=== PATIENT | male | born 1945 | race Native Hawaiian/Other Pacific Islander ===

== ENCOUNTER 2017-05-23 10:32 | Emergency (ER) | payer MEDICARE ==
[2017-05-23 11:11] LABS: Appearance,Urine Clear (Clear); Bilirubin,Urine Negative (Negative); Glucose,Urine (UA) Negative (Negative); Ketones,Urine Negative (Negative); Leukocyte Esterase,Urine Negative (Negative); Nitrite,Urine Negative (Negative); Particle Count 381; Protein,Urine Negative (Negative); RBC,Urine 3 /hpf (0-5); Specific Gravity,Urine 1.008 (1.001-1.035); UA Billing (MACRO vs. MICRO) MICRO; Urobilinogen,Urine <2.0 mg/dL (<2.0); WBC,Urine 1 /hpf (0-5)
--- NOTE | 2017-05-23 11:18 | ED ---
General Adult HPI - General Chief complaint: Urogenital Stated complaint: Abd Pain Time Seen by Provider: 05/23/17 10:42 Source: EMS, RN notes reviewed Mode of arrival: EMS Limitations: no limitations - History of Present Illness Initial comments: Patient 71-year-old male who presents emergency room today with a chief complaint of urinary retention. He states that he was unable to void earlier today. Patient does admit to pressure lower abdomen. Patient denies any other complaints or symptoms. States she's never had similar symptoms. Denies any history of prostate problems. Patient denies any recent fever, chills, shortness of breath, chest pain, back pain, abdominal pain, nausea or vomiting, numbness or tingling, dysuria or hematuria, constipation or diarrhea, headaches or visual changes, or any other complaints. - Related Data Home Medications Medication Instructions Recorded Confirmed Latanoprost [Xalatan 0.005%] 1 drop BOTH EYES HS 05/23/17 05/23/17 Allergies Allergy/AdvReac Type Severity Reaction Status Date / Time No Known Allergies Allergy Verified 05/23/17 11:02 Review of Systems ROS Statement: Those systems with pertinent positive or pertinent negative responses have been documented in the HPI. ROS Other: All systems not noted in ROS Statement are negative. Past Medical History Additional Past Medical History / Comment(s): Sciatica, glaucoma History of Any Multi-Drug Resistant Organisms: None Reported Past Surgical History: No Surgical Hx Reported Past Psychological History: No Psychological Hx Reported Smoking Status: Former smoker Past Alcohol Use History: None Reported Past Drug Use History: None Reported General Exam - General Exam Comments Initial Comments: General: The patient is awake and alert, in no distress, and does not appear acutely ill. Eye: Pupils are equal, round and reactive to light, extra-ocular movements are intact. No nystagmus. There is normal conjunctiva bilaterally. No signs of icterus. Ears, nose, mouth and throat: There are moist mucous membranes and no oral lesions. Neck: The neck is supple, there is no tenderness or JVD. Cardiovascular: There is a regular rate and rhythm. No murmur, rub or gallop is appreciated. Respiratory: Lungs are clear to auscultation, respirations are non-labored, breath sounds are equal. No wheezes, stridor, rales, or rhonchi. Gastrointestinal: Soft, non-distended, non-tender abdomen without masses or organomegaly noted. There is no rebound or guarding present. No CVA tenderness. Bowel sounds are unremarkable. Musculoskeletal: Normal ROM, no tenderness. Strength 5/5. Sensation intact. Pulses equal bilaterally 2+. Neurological: A&O x 3. CN II-XII intact, There are no obvious motor or sensory deficits. Coordination appears grossly intact. Speech is normal. Skin: Skin is warm and dry and no rashes or lesions are noted. Psychiatric: Cooperative, appropriate mood & affect, normal judgment. Limitations: no limitations Course Vital Signs 05/23/17 10:35 Temperature 98.2 F Pulse Rate 95 Respiratory 20 Rate Blood Pressure 160/93 O2 Sat by Pulse 99 Oximetry Medical Decision Making - Medical Decision Making Reexamined at this time shows no signs of distress feeling much better after Jara catheter was placed. His abdomen soft nontender. He has no complaints at this time. Patient's urinalysis shows no sign of infection. Jara catheter will remain in place be advised follow-up with the urologist over the next 2 days. Advised return if any symptoms increase worsen. - Lab Data Lab Results 05/23/17 Range/Units 10:52 Urine Color Light Yellow Urine Appearance Clear (Clear) Urine pH 7.0 (5.0-8.0) Ur Specific [place] 1.008 (1.001-1.035) Urine Protein Negative (Negative) Urine Glucose (UA) Negative (Negative) Urine Ketones Negative (Negative) Urine Blood Small H (Negative) Urine Nitrite Negative (Negative) Urine Bilirubin Negative (Negative) Urine Urobilinogen <2.0 (<2.0) mg/dL Ur Leukocyte Esterase Negative (Negative) Urine RBC 3 (0-5) /hpf Urine WBC 1 (0-5) /hpf Disposition Clinical Impression: Urinary retention Disposition: HOME SELF-CARE Condition: Good Instructions: Urinary Retention in Men (ED) Additional Instructions: Please follow-up with the urologist over the next 2 days. Please return here to the emergency room for symptoms increase worsen or for any other concerns. Referrals: None,Stated [REFERRING] - 1-2 days Alex Yoon MD [STAFF PHYSICIAN] - 1-2 days Time of Disposition: 11:50
[2017-05-23 12:10] VITALS: BP 118/69; PULSE 77; RESP 16; TEMP 98
== END 2017-05-23 12:09 | disposition home or self-care (01) ==
LOC: EC 10:32
DX: R33.9 Retention of urine, unspecified (principal); R10.30 Lower abdominal pain, unspecified; Z87.891 Personal history of nicotine dependence; Z79.899 Other long term (current) drug therapy
CPT/HCPCS: 51702; 81001; 87086; 99284

== ENCOUNTER 2017-09-01 14:03 | Emergency (ER) | payer MEDICARE ==
[2017-09-01 09:48] LABS: Blood Urea Nitrogen 17 mg/dL (9-20)
--- NOTE | 2017-09-01 12:12 | CT ---
EXAMINATION TYPE: CT abdomen pelvis w con DATE OF EXAM: 09/01/2017 COMPARISON: 01/20/2015 HISTORY: 72-year-old male prostate cancer, Enlarged prostate per patient TECHNIQUE: Contiguous axial scanning of the abdomen and pelvis following administration of 100 ml Omn ipaque 300 IV contrast. Delayed images through the kidneys and coronal/sagittal reconstructions perf ormed. CT DLP: 378.9 mGycm Automated exposure control for dose reduction was used. FINDINGS: Heart is normal size without pericardial effusion. Aortic valvular calcifications are present. Lung b ases clear without pleural effusion. Small hiatal hernia. There is a small 1.4 cm cyst along the falciform ligament in the left liver lobe. No biliary ductal d ilatation. Portal venous system is patent. No abnormal gallbladder distention. However, there is suggestion of underlying noncalcified gallstone s measuring up to 2.2 cm which can be confirmed with gallbladder ultrasound. Adrenal glands, left kidney, spleen, and pancreas appear within normal limits. Redemonstrated are 2.9 cm cyst lateral upper pole right kidney. Additional couple subcentimeter hypod ensities within the right kidney are too small for accurate CT characterization but also probably rep resent cysts No dilated small bowel, free fluid, or free air. Normal appendix. Oral contrast has progressed to the rectum. No pericolonic inflammatory change seen. No mesenteric or retroperitoneal lymphadenopathy. Bladder urine distended. Large prostate gland measuring 6.9 cm wide with nodular heterogeneous enhanc ement throughout and posterior impression on the bladder base. There is a single surgical clip noted in the lower prostate. No abnormal fluid collection in the pelvis or pelvic lymphadenopathy seen. Bones: Degenerative changes at the SI joints and also in the lower lumbar spine. IMPRESSION: 1. LARGE PROSTATE GLAND MEASURING NEARLY 7 CM WITH NODULAR HETEROGENEOUS ENHANCEMENT THROUGHOUT. THER E IS A SINGLE SURGICAL CLIP LOCATED WITHIN. 2. NO SUSPICIOUS LYMPHADENOPATHY OR OSTEOBLASTIC LESION TO SUGGEST METASTATIC DISEASE. 3. SUSPECT UNDERLYING CHOLELITHIASIS. THIS CAN BE CONFIRMED WITH GALLBLADDER ULTRASOUND IF INDICATED.
--- NOTE | 2017-09-01 14:39 | ED ---
Male Urogenital HPI - General Chief complaint: Urogenital Source: patient Mode of arrival: ambulatory Limitations: no limitations - History of Present Illness Initial comments: -year-old male with past medical history of BPH presented for evaluation of urinary retention. He states that he was sent in for a nuclear medicine study and consumed the contrast however following study he has been unable to urinate. He states that this is happened in the past and was secondary to his BPH. A leg bag Cotton was placed and remained for 4 days until he followed up with his urologist Dr. Gresham at which point it was removed. He states that he has superpubic abdominal tenderness however denies any other symptoms. There is no lower extremity weakness, saddle anesthesia, or bowel incontinence. - Related Data Home Medications Medication Instructions Recorded Confirmed Latanoprost [Xalatan 0.005%] 1 drop BOTH EYES HS 05/23/17 05/23/17 Allergies Allergy/AdvReac Type Severity Reaction Status Date / Time No Known Allergies Allergy Verified 09/01/17 14:09 Review of Systems ROS Statement: Those systems with pertinent positive or pertinent negative responses have been documented in the HPI. ROS Other: All systems not noted in ROS Statement are negative. Constitutional: Denies: fever, chills Eyes: Denies: eye pain, eye discharge ENT: Denies: ear pain, throat pain Respiratory: Denies: cough, dyspnea Cardiovascular: Denies: chest pain, palpitations Endocrine: Denies: fatigue, heat or cold intolerance Gastrointestinal: Reports: abdominal pain. Denies: nausea, vomiting, diarrhea, constipation Genitourinary: Reports: other (urinary retention). Denies: dysuria, frequency Musculoskeletal: Denies: back pain, arthralgia Skin: Denies: rash, lesions Neurological: Denies: headache, weakness Psychiatric: Denies: anxiety, depression Hematological/Lymphatic: Denies: easy bleeding, easy bruising Past Medical History Additional Past Medical History / Comment(s): Sciatica, glaucoma enlarged prostate History of Any Multi-Drug Resistant Organisms: None Reported Past Surgical History: No Surgical Hx Reported Past Psychological History: No Psychological Hx Reported Smoking Status: Former smoker Past Alcohol Use History: None Reported Past Drug Use History: None Reported General Exam Limitations: no limitations General appearance: alert, in distress (mild) Head exam: Present: atraumatic, normocephalic, normal inspection Eye exam: Present: normal appearance, PERRL, EOMI ENT exam: Present: normal exam, normal oropharynx Neck exam: Present: normal inspection. Absent: tenderness Respiratory exam: Present: normal lung sounds bilaterally. Absent: respiratory distress Cardiovascular Exam: Present: regular rate, normal rhythm GI/Abdominal exam: Present: soft, tenderness. Absent: distended, guarding, rebound, rigid Rectal exam: Present: deferred Extremities exam: Present: normal inspection, full ROM Back exam: Present: normal inspection, full ROM Neurological exam: Present: alert, oriented X3. Absent: altered Psychiatric exam: Present: normal affect, normal mood Skin exam: Present: warm, dry, intact Course Vital Signs 09/01/17 14:07 Temperature 98.8 F Pulse Rate 89 Respiratory 18 Rate Blood Pressure 133/88 O2 Sat by Pulse 99 Oximetry Medical Decision Making - Medical Decision Making 72 yo male with pmh of BPH presenting for evaluation of urinary retention following a nuclear medicine scan. He is previously had obstruction similar to this requiring Cotton catheter placement for 4 days is then removed by his urologist Dr. Gresham. On physical examination he has tenderness and fullness of the bladder. Bladder scan performed and showed 860 mL of fluid in the bladder and on Cotton placement 1 L immediately into the back. Discussed with his urologist who agreed with plan to place Cotton bag/leg bag and discharge home with follow-up in the morning. Patient was informed of this discussion and given return instructions. He acknowledged an understanding of all information provided and agreed with this plan of care. - Lab Data Result diagrams: 09/01/17 09:23 Lab Results 09/01/17 Range/Units 09:23 BUN 17 (9-20) mg/dL Creatinine 0.88 (0.66-1.25) mg/dL Est GFR (MDRD) Af Amer >60 (>60 ml/min/1.73 sqM) Est GFR (MDRD) Non-Af >60 (>60 ml/min/1.73 sqM) Disposition Clinical Impression: Urinary retention Disposition: HOME SELF-CARE Condition: Stable Instructions: Urinary Retention in Men (ED) Additional Instructions: You have had a cotton catheter placed that can be strapped to your leg. This has been discussed with your urologist Dr. Gresham who was contacted and stated he could see you in his office tomorrow. Per our discussion, it is recommended you call him when you leave today to confirm your appointment for tomorrow. Furthermore, you should return to this ED if you are either unable to see him or develop new/worsening symptoms, including but not limited to: Abdominal pain , nausea and vomiting that won't stop, altered mental status, fevers or chills, shortness of breath or chest pain, lightheadedness or dizziness, inability to pass urine through the Cotton, or leakage of urine around the Cotton and out the penis. Referrals: Alex Okeefe MD [Primary Care Provider] - 1-2 days Lux Gresham MD [STAFF PHYSICIAN] - 1-2 days Time of Disposition: 14:45
[2017-09-01 15:14] VITALS: BP 124/78; PULSE 84; RESP 20; TEMP 97.8
--- NOTE | 2017-09-01 15:58 | NM ---
EXAMINATION TYPE: NM bone scan whole body DATE OF EXAM: 09/01/2017 COMPARISON: CT abdomen and pelvis earlier today. HISTORY: Prostate cancer Delayed whole-body scanning was performed following the injection of 22.2 mCi Tc 99m MDP. Images acq uired 3.5 hours post injection. Whole images are obtained in addition there are focal images of the t horax abdomen and pelvis acquired FINDINGS: There is focus of radiotracer uptake involving anterolateral left mid to lower rib roughly seventh ri b this correlates with a vague sclerotic area on axial image 1, correlate for healing fracture or rec ent trauma. Solitary metastatic lesion cannot be excluded though felt less likely given no additional areas of suspicious radiotracer uptake. Overlying contamination is seen after Jara catheterization. Imaging performed after Jara catheter inserted to empty bladder shows no suspicious pelvic uptake. IMPRESSION: As above
== END 2017-09-01 15:14 | disposition home or self-care (01) ==
LOC: EC 14:03
DX: R33.9 Retention of urine, unspecified (principal); Z87.891 Personal history of nicotine dependence; Z79.899 Other long term (current) drug therapy
CPT/HCPCS: 82565; 84520; 74177; 78306; 99284; 51702; A9503; Q9967; 36415

== ENCOUNTER 2017-09-19 09:33 | Emergency (ER) | payer MEDICARE ==
[2017-09-19 10:17] LABS: Appearance,Urine Clear (Clear); Bilirubin,Urine Negative (Negative); Blood,Urine Negative (Negative); Color,Urine Light Yellow; Glucose,Urine (UA) Negative (Negative); Ketones,Urine Negative (Negative); Leukocyte Esterase,Urine Negative (Negative); Nitrite,Urine Negative (Negative); Protein,Urine Negative (Negative); Specific Gravity,Urine 1.008 (1.001-1.035); Urobilinogen,Urine <2.0 mg/dL (<2.0)
--- NOTE | 2017-09-19 10:33 | ED ---
General Adult HPI - General Chief complaint: Urogenital Stated complaint: Male gu, can't urine Time Seen by Provider: 09/19/17 09:56 Source: patient, RN notes reviewed Mode of arrival: ambulatory Limitations: no limitations - History of Present Illness Initial comments: Patient 72-year-old male who presents emergency room today with a chief complaint of difficulty voiding. Patient states that he has a history of prostate cancer is currently being treated by urologist. States that he had some injections a few weeks ago. States that he's had some symptoms of dysuria this past week at times. States began to get worse this morning. States was able to sleep. Patient's been voiding small amount. Patient did have bladder scan here in the emergency room that showed greater than 800 mL. Nursing staff had placed a Jara catheter and patient is feeling much better at this time. Patient denies any recent fever, chills, shortness of breath, chest pain, back pain, numbness or tingling, constipation or diarrhea, headaches or visual changes, or any other complaints. - Related Data Home Medications Medication Instructions Recorded Confirmed Latanoprost [Xalatan 0.005%] 1 drop BOTH EYES HS 05/23/17 09/19/17 Tamsulosin [Flomax] 0.4 mg PO DAILY 09/01/17 09/19/17 Allergies Allergy/AdvReac Type Severity Reaction Status Date / Time No Known Allergies Allergy Verified 09/19/17 10:04 Review of Systems ROS Statement: Those systems with pertinent positive or pertinent negative responses have been documented in the HPI. ROS Other: All systems not noted in ROS Statement are negative. Past Medical History Past Medical History: Prostate Disorder Additional Past Medical History / Comment(s): Sciatica, glaucoma enlarged prostate History of Any Multi-Drug Resistant Organisms: None Reported Past Surgical History: No Surgical Hx Reported Past Psychological History: No Psychological Hx Reported Smoking Status: Former smoker Past Alcohol Use History: None Reported Past Drug Use History: None Reported General Exam - General Exam Comments Initial Comments: General: The patient is awake and alert, in no distress, and does not appear acutely ill. Eye: Pupils are equal, round and reactive to light, extra-ocular movements are intact. No nystagmus. There is normal conjunctiva bilaterally. Ears, nose, mouth and throat: There are moist mucous membranes and no oral lesions. Neck: The neck is supple. Cardiovascular: There is a regular rate and rhythm. No murmur, rub or gallop is appreciated. Respiratory: Lungs are clear to auscultation, respirations are non-labored, breath sounds are equal. No wheezes, stridor, rales, or rhonchi. Gastrointestinal: Soft, non-distended, non-tender abdomen without masses or organomegaly noted. There is no rebound or guarding present. No CVA tenderness. Musculoskeletal: Normal ROM, no tenderness. Strength 5/5. Sensation intact. Pulses equal bilaterally 2+. Neurological: A&O x 3. CN II-XII intact, There are no obvious motor or sensory deficits. Coordination appears grossly intact. Speech is normal. Skin: Skin is warm and dry and no rashes or lesions are noted. Psychiatric: Cooperative, appropriate mood & affect, normal judgment. Limitations: no limitations Course Vital Signs 09/19/17 09:44 Temperature 97.2 F L Pulse Rate 95 Respiratory 20 Rate Blood Pressure 134/65 O2 Sat by Pulse 100 Oximetry Medical Decision Making - Medical Decision Making Patient reexamined at this time shows no signs of distress. He doesn't that he is feeling better after Jara catheter was placed here in the emergency room. Patient urinalysis is negative for any sign of infection. His vitals are stable. Case discussed with attending physician Dr. Hassan. Patient will be discharged home with Jara catheter in place given a leg bag. Advised follow- up with his urologist tomorrow morning. Advised return if any symptoms increase worsen or for any other concerns. He states understanding and is in agreement. - Lab Data Lab Results 09/19/17 Range/Units 10:00 Urine Color Light Yellow Urine Appearance Clear (Clear) Urine pH 6.0 (5.0-8.0) Ur Specific [place] 1.008 (1.001-1.035) Urine Protein Negative (Negative) Urine Glucose (UA) Negative (Negative) Urine Ketones Negative (Negative) Urine Blood Negative (Negative) Urine Nitrite Negative (Negative) Urine Bilirubin Negative (Negative) Urine Urobilinogen <2.0 (<2.0) mg/dL Ur Leukocyte Esterase Negative (Negative) Disposition Clinical Impression: Urinary retention Disposition: HOME SELF-CARE Condition: Good Instructions: Urinary Retention in Men (ED) Additional Instructions: Please follow-up with your neurologist tomorrow. Please return here to the emergency room if any symptoms increase worsen or for any other concerns. Referrals: Alex Okeefe MD [Primary Care Provider] - 1-2 days Lux Gresham MD [STAFF PHYSICIAN] - 1-2 days Time of Disposition: 11:12
[2017-09-19 11:40] VITALS: BP 111/58; PULSE 57; RESP 16; TEMP 97.6
== END 2017-09-19 11:46 | disposition home or self-care (01) ==
LOC: EC 09:33
DX: R33.9 Retention of urine, unspecified (principal); R30.0 Dysuria; Z87.891 Personal history of nicotine dependence; Z85.46 Personal history of malignant neoplasm of prostate; Z79.899 Other long term (current) drug therapy
CPT/HCPCS: 51702; 51798; 81003; 87086; 99283

== ENCOUNTER 2018-02-23 09:00 | Emergency (ER) | payer MEDICARE ==
[2018-02-23 09:23] VITALS: BP 106/61; PULSE 78; RESP 18; TEMP 98.6
--- NOTE | 2018-02-23 09:59 | ED ---
Wound/Laceration HPI - General Source: patient, RN notes reviewed, old records reviewed Mode of arrival: ambulatory Limitations: no limitations <Lena Taylor - Last Filed: 02/23/18 10:52> <Merlin Soriano - Last Filed: 02/23/18 11:03> - General Chief Complaint: Wound/Laceration Stated Complaint: Hand laceration Time Seen by Provider: 02/23/18 09:49 - History of Present Illness Initial Comments: 72-year-old male presents today with a laceration over his right index finger. Patient reports that he was throwing a toilet into the trash can cause a laceration over the fourth digit. He reports over the medial aspect of the phalanx. He reports he does have range of motion. He states his tetanus is up- to-date. Denies any other symptoms. (Lena Taylor) - Related Data Home Medications Medication Instructions Recorded Confirmed Latanoprost [Xalatan 0.005%] 1 drop BOTH EYES HS 05/23/17 09/19/17 Tamsulosin [Flomax] 0.4 mg PO DAILY 09/01/17 09/19/17 Allergies Allergy/AdvReac Type Severity Reaction Status Date / Time No Known Allergies Allergy Verified 02/23/18 09:23 Review of Systems ROS Other: All systems not noted in ROS Statement are negative. <Lena Taylor - Last Filed: 02/23/18 10:52> ROS Other: All systems not noted in ROS Statement are negative. <Merlin Soriano - Last Filed: 02/23/18 11:03> ROS Statement: Those systems with pertinent positive or pertinent negative responses have been documented in the HPI. Past Medical History Past Medical History: Cancer, Prostate Disorder Additional Past Medical History / Comment(s): Sciatica, glaucoma enlarged prostate, prostate cancer History of Any Multi-Drug Resistant Organisms: None Reported Past Surgical History: No Surgical Hx Reported Past Psychological History: No Psychological Hx Reported Smoking Status: Former smoker Past Alcohol Use History: None Reported Past Drug Use History: None Reported <Lena Taylor - Last Filed: 02/23/18 10:52> General Exam Limitations: no limitations General appearance: alert, in no apparent distress Head exam: Present: atraumatic, normocephalic, normal inspection Eye exam: Present: normal appearance, PERRL, EOMI. Absent: scleral icterus, conjunctival injection, periorbital swelling ENT exam: Present: normal exam, mucous membranes moist Neck exam: Present: normal inspection. Absent: tenderness, meningismus, lymphadenopathy Respiratory exam: Present: normal lung sounds bilaterally. Absent: respiratory distress, wheezes, rales, rhonchi, stridor Cardiovascular Exam: Present: regular rate, normal rhythm, normal heart sounds. Absent: systolic murmur, diastolic murmur, rubs, gallop, clicks GI/Abdominal exam: Present: soft, normal bowel sounds. Absent: distended, tenderness, guarding, rebound, rigid Extremities exam: Present: normal inspection, full ROM, normal capillary refill , other ( is a 2 cm laceration over his right index finger.). Absent: tenderness, pedal edema, joint swelling, calf tenderness Back exam: Present: normal inspection Neurological exam: Present: alert, oriented X3, CN II-XII intact Psychiatric exam: Present: normal affect, normal mood Skin exam: Present: warm, dry, intact, normal color. Absent: rash <Lena Taylor - Last Filed: 02/23/18 10:52> <Merlin Soriano - Last Filed: 02/23/18 11:03> - General Exam Comments Initial Comments: 72-year-old (Lena Taylor) Course <Lena Taylor - Last Filed: 02/23/18 10:52> <Merlin Soriano - Last Filed: 02/23/18 11:03> Vital Signs 02/23/18 09:21 Temperature 98.6 F Pulse Rate 78 Respiratory 18 Rate Blood Pressure 106/61 O2 Sat by Pulse 98 Oximetry - Reevaluation(s) Reevaluation #1: 02/23/18 11:03 PA supervision: I reviewed and agree with the PA findings including all diagnostic interpretations and treatment plans. (Merlin Soriano) Procedures - Laceration Laceration #1 Site: hand (index finger) Size (cm): 2 Description: linear Anesthetic Used: lidocaine 1% Anesthesia Technique: local infiltration Amount (mls): 2 Pre-repair: wound explored, irrigated extensively Type of Sutures: vicryl Size of Sutures: 5-0 Number of Sutures: 3 Technique: simple, interrupted Patient Tolerated Procedure: well, no complications <Lena Taylor - Last Filed: 02/23/18 10:52> Medical Decision Making <Lena Taylor - Last Filed: 02/23/18 10:52> <Merlin Soriano - Last Filed: 02/23/18 11:03> - Medical Decision Making 72-year-old male with a laceration over his right next finger after he was attempting to throw totaling cut on the dorsal aspect. His tetanus is up-to- date. Patient x-rays reviewed and negative for any fractures or dislocation of the right hand. Patient's wound was irrigated and cleaned. Closed with 3 sutures. Discussed close follow-up with PCP. All questions answered return parameters were discussed. (Maria Elena Taylorily) Disposition Is patient prescribed a controlled substance at d/c from ED?: No Time of Disposition: 10:29 <ClaudiaLena - Last Filed: 02/23/18 10:52> <Merlin Soriano - Last Filed: 02/23/18 11:03> Clinical Impression: Finger laceration Disposition: HOME SELF-CARE Condition: Good Instructions: Care For Your Stitches (ED) Additional Instructions: Please return to the emergency room in 8-10 days to have sutures removed. Please leave wound covered for the first 24-48 hours and then leave open to air after that time. Please use clean soap and water to clean the suture area to prevent scabbing over the top of your sutures. Please watch for any signs of infection which may include but not limited to increased pain, swelling, redness , fever or chills. Please return to the emergency room if any signs of infection do occur. Please return to the emergency room for any other concerns or complications. Referrals: Sharif Okeefe MD [Primary Care Provider] - 1-2 days
--- NOTE | 2018-02-23 10:15 | XR ---
EXAMINATION TYPE: XR hand complete RT DATE OF EXAM: 02/23/2018 CLINICAL HISTORY: Cut injury with pain. TECHNIQUE: Frontal, lateral and oblique images of the right hand are obtained. COMPARISON: None. FINDINGS: There is no acute fracture/dislocation evident in the right hand. Demineralization is pres ent. Mild joint space loss throughout the phalanges is seen. Mild diffuse soft tissue swelling at PIP joints is noted. No suspicious radiodense foreign bodies appreciated. Radiocarpal joint space loss i s present. IMPRESSION: There is no acute fracture or dislocation in the right hand.
[2018-02-23] MEDS ORDERED: LIDOCAINE 1% INJ 10MG/ML (20 ML MDV) SQ STA (10:18)
== END 2018-02-23 10:53 | disposition home or self-care (01) ==
LOC: EC 09:00
DX: S61.210A Laceration without foreign body of right index finger without damage to nail, initial encounter (principal); N40.0 Benign prostatic hyperplasia without lower urinary tract symptoms; Z85.46 Personal history of malignant neoplasm of prostate; Z87.891 Personal history of nicotine dependence; Z79.899 Other long term (current) drug therapy; W26.8XXA Contact with other sharp object(s), not elsewhere classified, initial encounter
CPT/HCPCS: 12001; 99283

== ENCOUNTER 2019-06-06 12:15 | Emergency (ER) | payer MEDICARE ==
[2019-06-06 12:21] VITALS: TEMP 98.1
--- NOTE | 2019-06-06 12:35 | ED ---
General Adult HPI - General Chief complaint: Abdominal Pain Stated complaint: upper abdominal & back pain Time Seen by Provider: 06/06/19 12:24 Source: patient, RN notes reviewed, old records reviewed Mode of arrival: ambulatory Limitations: no limitations - History of Present Illness Initial comments: 73-year-old male presents for evaluation of an episode of crampy epigastric pain and nausea. This was approximately 15-20 minutes after eating this morning. He has had intermittent episodes of similar symptoms in the past. He was at work at the time and the symptoms were relieved with ambulation and time. He had no vomiting. His had normal bowel movements this morning. No melena or bloody stool. He states his had similar symptoms in the past 15-20 minutes after eating. He is otherwise healthy, no hypertension or diabetes. He has known h istory of prostate cancer and is following with an outside facility. He denies dyspnea. Denies chest pain. - Related Data Home Medications Medication Instructions Recorded Confirmed Latanoprost [Xalatan 0.005%] 1 drop BOTH EYES HS 05/23/17 09/19/17 Tamsulosin [Flomax] 0.4 mg PO DAILY 09/01/17 09/19/17 Previous Rx's Medication Instructions Recorded Omeprazole [PriLOSEC] 20 mg PO AC-BID #60 cap 06/06/19 Allergies Allergy/AdvReac Type Severity Reaction Status Date / Time No Known Allergies Allergy Verified 06/06/19 12:21 Review of Systems ROS Statement: Those systems with pertinent positive or pertinent negative responses have been documented in the HPI. ROS Other: All systems not noted in ROS Statement are negative. Past Medical History Past Medical History: Cancer, Prostate Disorder Additional Past Medical History / Comment(s): Sciatica, glaucoma enlarged prostate, prostate cancer History of Any Multi-Drug Resistant Organisms: None Reported Past Surgical History: No Surgical Hx Reported Past Psychological History: No Psychological Hx Reported Smoking Status: Former smoker Past Alcohol Use History: None Reported Past Drug Use History: None Reported General Exam Limitations: no limitations General appearance: alert, in no apparent distress Head exam: Present: atraumatic, normocephalic Eye exam: Present: normal appearance, PERRL ENT exam: Present: normal exam Neck exam: Present: normal inspection. Absent: tenderness, meningismus Respiratory exam: Present: normal lung sounds bilaterally. Absent: respiratory distress, wheezes Cardiovascular Exam: Present: regular rate, normal rhythm GI/Abdominal exam: Present: soft. Absent: distended, tenderness, guarding, rebound Extremities exam: Present: normal inspection, normal capillary refill, other (Bilateral PT pulses 2+, bilateral radial pulses 2+). Absent: pedal edema Neurological exam: Present: alert, oriented X3, CN II-XII intact. Absent: motor sensory deficit Psychiatric exam: Present: normal affect, normal mood Skin exam: Present: warm, dry, intact. Absent: cyanosis, diaphoretic Course Vital Signs 06/06/19 06/06/19 06/06/19 12:19 13:09 13:30 Temperature 98.1 F Pulse Rate 84 72 Respiratory 20 16 Rate Blood Pressure 117/67 117/62 O2 Sat by Pulse 98 99 98 Oximetry - Reevaluation(s) Reevaluation #1: 06/06/19 14:04 Patient reevaluated, he is symptom free, resting comfortably with stable vitals. He has no pain during his time in the emergency department. EKG Findings - EKG Comments: EKG Findings:: EKG: Normal sinus rhythm, LVH rate of 68, TN interval 142, QRS duration 92, QTC 410, no ST segment elevation or depression. Similar compared to previous EKG 2015 Medical Decision Making - Medical Decision Making 73-year-old male presents with epigastric abdominal pain 20 minutes after eating. This was burning in nature. Patient has had similar symptoms in the past. No chest pain. No vomiting. No fever chills. Patient is asymptomatic at the time my evaluation and remains a symptomatically on the emergency department. He receives a workup including cardiac workup EKG and troponin. He has mild elevation in AST at 90. He is reevaluated with deep abdominal palpation in the right upper quadrant with 0 pain. He will be started on proton pump inhibitor for possible gastritis or peptic ulcer. He will return with development of constipation worsening pain, fever, vomiting. He will follow-up with his primary care physician for an ultrasound of gallbladder. - Lab Data Result diagrams: 06/06/19 12:51 06/06/19 12:51 Lab Results 06/06/19 06/06/19 06/06/19 Range/Units 12:51 12:51 12:51 WBC 6.0 (3.8-10.6) k/uL RBC 4.57 (4.30-5.90) m/uL Hgb 13.8 (13.0-17.5) gm/dL Hct 42.1 (39.0-53.0) % MCV 92.2 (80.0-100.0) fL MCH 30.3 (25.0-35.0) pg MCHC 32.8 (31.0-37.0) g/dL RDW 13.0 (11.5-15.5) % Plt Count 157 (150-450) k/uL Neutrophils % 81 % Lymphocytes % 11 % Monocytes % 5 % Eosinophils % 1 % Basophils % 1 % Neutrophils # 4.8 (1.3-7.7) k/uL Lymphocytes # 0.6 L (1.0-4.8) k/uL Monocytes # 0.3 (0-1.0) k/uL Eosinophils # 0.1 (0-0.7) k/uL Basophils # 0.1 (0-0.2) k/uL Sodium 139 (137-145) mmol/L Potassium 4.1 (3.5-5.1) mmol/L Chloride 107 (98-107) mmol/L Carbon Dioxide 26 (22-30) mmol/L Anion Gap 6 mmol/L BUN 17 (9-20) mg/dL Creatinine 0.87 (0.66-1.25) mg/dL Est GFR (CKD-EPI)AfAm >90 (>60 ml/min/1.73 sqM) Est GFR (CKD-EPI)NonAf 86 (>60 ml/min/1.73 sqM) Glucose 107 H (74-99) mg/dL Calcium 9.4 (8.4-10.2) mg/dL Total Bilirubin 0.5 (0.2-1.3) mg/dL AST 90 H (17-59) U/L ALT 46 (21-72) U/L Alkaline Phosphatase 88 (38-126) U/L Troponin I <0.012 (0.000-0.034) ng/mL Total Protein 6.8 (6.3-8.2) g/dL Albumin 4.3 (3.5-5.0) g/dL Amylase 65 (30-110) U/L Lipase 104 (23-300) U/L Disposition Clinical Impression: Abdominal pain Disposition: HOME SELF-CARE Condition: Good Instructions (If sedation given, give patient instructions): Abdominal Pain (ED) Prescriptions: Omeprazole [PriLOSEC] 20 mg PO AC-BID #60 cap Is patient prescribed a controlled substance at d/c from ED?: No Referrals: Sharif Okeefe MD [Primary Care Provider] - 1-2 days Naveed Ventura MD [STAFF PHYSICIAN] - 1-2 days Time of Disposition: 14:08
[2019-06-06 13:06] LABS: Basophils # (A) 0.1 k/uL (0-0.2); Basophils % (A) 1 %; Eosinophils # (A) 0.1 k/uL (0-0.7); Eosinophils % (A) 1 %; HCT 42.1 % (39.0-53.0); HGB 13.8 gm/dL (13.0-17.5); Lymphocytes # (A) 0.6 k/uL (1.0-4.8); Lymphocytes % (A) 11 %; MCH 30.3 pg (25.0-35.0); MCHC 32.8 g/dL (31.0-37.0); MCV 92.2 fL (80.0-100.0); Mean Platelet Volume 7.4; Monocytes # (A) 0.3 k/uL (0-1.0); Monocytes % (A) 5 %; Neutrophils # (A) 4.8 k/uL (1.3-7.7); Neutrophils % (A) 81 %; Platelet Count 157 k/uL (150-450); RBC 4.57 m/uL (4.30-5.90)
[2019-06-06 13:15] LABS: ALT 46 U/L (21-72); AST 90 U/L (17-59); African American GFR (CKD) >90 (>60 ml/min/1.73 sqM); Albumin 4.3 g/dL (3.5-5.0); Alkaline Phosphatase 88 U/L (38-126); Amylase 65 U/L (30-110); Anion Gap 6 mmol/L; Blood Urea Nitrogen 17 mg/dL (9-20); Calcium 9.4 mg/dL (8.4-10.2); Carbon Dioxide 26 mmol/L (22-30); Chloride 107 mmol/L (98-107); Glucose 107 mg/dL (74-99); Non-African American GFR(CKD) 86 (>60 ml/min/1.73 sqM); Potassium 4.1 mmol/L (3.5-5.1); Sodium 139 mmol/L (137-145); Total Bilirubin 0.5 mg/dL (0.2-1.3); Total Protein 6.8 g/dL (6.3-8.2)
[2019-06-06 13:34] VITALS: RESP 16
[2019-06-06 14:22] VITALS: BP 117/86; PULSE 84
== END 2019-06-06 14:22 | disposition home or self-care (01) ==
LOC: EC 12:15
DX: R10.13 Epigastric pain (principal); R74.0 Nonspecific elevation of levels of transaminase and lactic acid dehydrogenase [LDH]; M54.9 Dorsalgia, unspecified; R11.0 Nausea; H40.9 Unspecified glaucoma; N40.0 Benign prostatic hyperplasia without lower urinary tract symptoms; Z85.46 Personal history of malignant neoplasm of prostate; Z87.891 Personal history of nicotine dependence; Z79.899 Other long term (current) drug therapy
CPT/HCPCS: 36415; 80053; 82150; 83690; 84484; 85025; 93005; 99284

== ENCOUNTER 2019-10-28 23:27 | Emergency (ER) | payer MEDICARE ==
[2019-10-28 23:34] VITALS: TEMP 98.2
[2019-10-28] MEDS ORDERED: MORPHINE SULFATE 4 MG/ML SYRINGE IV STA (23:40)
[2019-10-28] MEDS ORDERED: SODIUM CHLORIDE 0.9% 1,000 ML IV STA (23:40)
[2019-10-28] MEDS ORDERED: ONDANSETRON 4 MG/2 ML VIAL IVP STA (23:40)
--- NOTE | 2019-10-29 00:05 | ED ---
Abdominal Pain HPI - General Chief Complaint: Abdominal Pain Stated Complaint: Upper Abd Pain/Back Pain Time Seen by Provider: 10/28/19 23:28 Source: patient, RN notes reviewed, old records reviewed Mode of arrival: wheelchair Limitations: no limitations - History of Present Illness Initial Comments: This is a 74-year-old male DF for abdominal pain. Anterior abdominal pain specific abdominal pain with radiation to his back also feels pain in his back. Patient has history of prostate cancer no history of abdominal surgery, mild nausea no vomiting no change in appetite he did have a bowel movement today was normal. Pain is much improved upon arrival to ER patient states he was initially crampy and stabbing although improved now. No fevers. No diarrhea. No known known sick contacts. He has had history of same with ER visit, no diagnosis or evaluation made at the time that give him any medication to cause of symptoms. Maybe a 7 ulcer MD Complaint: abdominal pain -: hour(s) Location: suprapubic Radiation: suprapubic Severity: moderate Severity scale (1-10): 4 Quality: aching Consistency: constant, now resolved (Improved significantly) Improves With: nothing Worsens With: nothing Associated Symptoms: nausea - Related Data Home Medications Medication Instructions Recorded Confirmed Latanoprost [Xalatan 0.005%] 1 drop BOTH EYES HS 05/23/17 09/19/17 Tamsulosin [Flomax] 0.4 mg PO DAILY 09/01/17 09/19/17 Previous Rx's Medication Instructions Recorded Omeprazole [PriLOSEC] 20 mg PO AC-BID #60 cap 06/06/19 Allergies Allergy/AdvReac Type Severity Reaction Status Date / Time No Known Allergies Allergy Verified 10/28/19 23:33 Review of Systems ROS Statement: Those systems with pertinent positive or pertinent negative responses have been documented in the HPI. ROS Other: All systems not noted in ROS Statement are negative. Past Medical History Past Medical History: Cancer, Prostate Disorder Additional Past Medical History / Comment(s): Sciatica, glaucoma enlarged prostate, prostate cancer History of Any Multi-Drug Resistant Organisms: None Reported Past Surgical History: No Surgical Hx Reported Past Psychological History: No Psychological Hx Reported Smoking Status: Former smoker Past Alcohol Use History: None Reported Past Drug Use History: None Reported General Exam Limitations: no limitations General appearance: alert, in no apparent distress Head exam: Present: atraumatic, normocephalic, normal inspection Eye exam: Present: normal appearance, PERRL, EOMI. Absent: scleral icterus, conjunctival injection, periorbital swelling ENT exam: Present: normal exam, mucous membranes moist Neck exam: Present: normal inspection. Absent: tenderness, meningismus, lymphadenopathy Respiratory exam: Present: normal lung sounds bilaterally. Absent: respiratory distress, wheezes, rales, rhonchi, stridor Cardiovascular Exam: Present: regular rate, normal rhythm, normal heart sounds. Absent: systolic murmur, diastolic murmur, rubs, gallop, clicks GI/Abdominal exam: Present: soft, normal bowel sounds. Absent: distended, tenderness, guarding, rebound, rigid Extremities exam: Present: normal inspection, full ROM, normal capillary refill. Absent: tenderness, pedal edema, joint swelling, calf tenderness Back exam: Present: normal inspection Neurological exam: Present: alert, oriented X3, CN II-XII intact Psychiatric exam: Present: normal affect, normal mood Skin exam: Present: warm, dry, intact, normal color. Absent: rash Course Vital Signs 10/28/19 23:28 Temperature 98.2 F Pulse Rate 77 Respiratory 16 Rate Blood Pressure 153/80 O2 Sat by Pulse 99 Oximetry - Reevaluation(s) Reevaluation #1: 10/29/19 00:47 Medical records reviewed including prior ER visit for same Reevaluation #2: 10/29/19 00:48 Patient remains improved Reevaluation #3: 10/29/19 02:10 Patient not requiring pain medication here in the ER 10/29/19 02:10 Patient family informed results, questions answered Medical Decision Making - Medical Decision Making 71 female DF for evaluation of abdominal pain. Back pain. History of prostate cancer. Patient's in no distress here in the ER symptoms otherwise manageable and patient can be discharged home - Lab Data Result diagrams: 10/28/19 23:48 10/28/19 23:48 Lab Results 10/28/19 10/28/19 10/28/19 Range/Units 23:48 23:48 23:48 WBC 5.8 (3.8-10.6) k/uL RBC 4.88 (4.30-5.90) m/uL Hgb 14.4 (13.0-17.5) gm/dL Hct 44.1 (39.0-53.0) % MCV 90.4 (80.0-100.0) fL MCH 29.6 (25.0-35.0) pg MCHC 32.7 (31.0-37.0) g/dL RDW 13.2 (11.5-15.5) % Plt Count 159 (150-450) k/uL Neutrophils % 63 % Lymphocytes % 25 % Monocytes % 6 % Eosinophils % 2 % Basophils % 1 % Neutrophils # 3.7 (1.3-7.7) k/uL Lymphocytes # 1.5 (1.0-4.8) k/uL Monocytes # 0.4 (0-1.0) k/uL Eosinophils # 0.1 (0-0.7) k/uL Basophils # 0.0 (0-0.2) k/uL PT 9.8 (9.0-12.0) sec INR 0.9 (<1.2) APTT 23.4 (22.0-30.0) sec D-Dimer 0.28 (<0.60) mg/L FEU Sodium 137 (137-145) mmol/L Potassium 3.8 (3.5-5.1) mmol/L Chloride 107 (98-107) mmol/L Carbon Dioxide 23 (22-30) mmol/L Anion Gap 7 mmol/L BUN 23 H (9-20) mg/dL Creatinine 0.91 (0.66-1.25) mg/dL Est GFR (CKD-EPI)AfAm >90 (>60 ml/min/1.73 sqM) Est GFR (CKD-EPI)NonAf 83 (>60 ml/min/1.73 sqM) Glucose 135 H (74-99) mg/dL Plasma Lactic Acid Ramírez (0.7-2.0) mmol/L Calcium 9.2 (8.4-10.2) mg/dL Total Bilirubin 0.2 (0.2-1.3) mg/dL AST 53 (17-59) U/L ALT 33 (4-49) U/L Alkaline Phosphatase 107 (38-126) U/L Total Protein 6.9 (6.3-8.2) g/dL Albumin 4.3 (3.5-5.0) g/dL Amylase 80 (30-110) U/L Lipase 136 (23-300) U/L Urine Color Urine Appearance (Clear) Urine pH (5.0-8.0) Ur Specific [place] (1.001-1.035) Urine Protein (Negative) Urine Glucose (UA) (Negative) Urine Ketones (Negative) Urine Blood (Negative) Urine Nitrite (Negative) Urine Bilirubin (Negative) Urine Urobilinogen (<2.0) mg/dL Ur Leukocyte Esterase (Negative) Urine RBC (0-5) /hpf Urine WBC (0-5) /hpf Amorphous Sediment (None) /hpf Urine Mucus (None) /hpf 10/28/19 10/29/19 Range/Units 23:48 00:10 WBC (3.8-10.6) k/uL RBC (4.30-5.90) m/uL Hgb (13.0-17.5) gm/dL Hct (39.0-53.0) % MCV (80.0-100.0) fL MCH (25.0-35.0) pg MCHC (31.0-37.0) g/dL RDW (11.5-15.5) % Plt Count (150-450) k/uL Neutrophils % % Lymphocytes % % Monocytes % % Eosinophils % % Basophils % % Neutrophils # (1.3-7.7) k/uL Lymphocytes # (1.0-4.8) k/uL Monocytes # (0-1.0) k/uL Eosinophils # (0-0.7) k/uL Basophils # (0-0.2) k/uL PT (9.0-12.0) sec INR (<1.2) APTT (22.0-30.0) sec D-Dimer (<0.60) mg/L FEU Sodium (137-145) mmol/L Potassium (3.5-5.1) mmol/L Chloride (98-107) mmol/L Carbon Dioxide (22-30) mmol/L Anion Gap mmol/L BUN (9-20) mg/dL Creatinine (0.66-1.25) mg/dL Est GFR (CKD-EPI)AfAm (>60 ml/min/1.73 sqM) Est GFR (CKD-EPI)NonAf (>60 ml/min/1.73 sqM) Glucose (74-99) mg/dL Plasma Lactic Acid Ramírez 1.1 (0.7-2.0) mmol/L Calcium (8.4-10.2) mg/dL Total Bilirubin (0.2-1.3) mg/dL AST (17-59) U/L ALT (4-49) U/L Alkaline Phosphatase (38-126) U/L Total Protein (6.3-8.2) g/dL Albumin (3.5-5.0) g/dL Amylase (30-110) U/L Lipase (23-300) U/L Urine Color Yellow Urine Appearance Cloudy (Clear) Urine pH 7.0 (5.0-8.0) Ur Specific [place] 1.020 (1.001-1.035) Urine Protein Trace H (Negative) Urine Glucose (UA) Negative (Negative) Urine Ketones Negative (Negative) Urine Blood Trace H (Negative) Urine Nitrite Negative (Negative) Urine Bilirubin Negative (Negative) Urine Urobilinogen <2.0 (<2.0) mg/dL Ur Leukocyte Esterase Negative (Negative) Urine RBC 3 (0-5) /hpf Urine WBC 1 (0-5) /hpf Amorphous Sediment Few H (None) /hpf Urine Mucus Rare H (None) /hpf - EKG Data -: EKG Interpreted by Me (EKG shows sinus rhythm of 72, PA 144, QRS 94, QTc 411) - Radiology Data Radiology results: report reviewed (CT abd pelvis negative for acute disase), image reviewed Disposition Clinical Impression: Abdominal pain Disposition: HOME SELF-CARE Condition: Good Instructions (If sedation given, give patient instructions): Abdominal Pain (ED) Is patient prescribed a controlled substance at d/c from ED?: No Referrals: Sharif Okeefe MD [Primary Care Provider] - 1-2 days
[2019-10-29 00:06] LABS: Basophils % (A) 1 %; Eosinophils # (A) 0.1 k/uL (0-0.7); Eosinophils % (A) 2 %; HCT 44.1 % (39.0-53.0); HGB 14.4 gm/dL (13.0-17.5); Lymphocytes # (A) 1.5 k/uL (1.0-4.8); Lymphocytes % (A) 25 %; MCH 29.6 pg (25.0-35.0); MCHC 32.7 g/dL (31.0-37.0); MCV 90.4 fL (80.0-100.0); Mean Platelet Volume 8.2; Monocytes # (A) 0.4 k/uL (0-1.0); Monocytes % (A) 6 %; Neutrophils # (A) 3.7 k/uL (1.3-7.7); Neutrophils % (A) 63 %; Platelet Count 159 k/uL (150-450); RBC 4.88 m/uL (4.30-5.90); RDW 13.2 % (11.5-15.5); WBC 5.8 k/uL (3.8-10.6)
[2019-10-29 00:21] LABS: ALT 33 U/L (4-49); AST 53 U/L (17-59); African American GFR (CKD) >90 (>60 ml/min/1.73 sqM); Albumin 4.3 g/dL (3.5-5.0); Alkaline Phosphatase 107 U/L (38-126); Amylase 80 U/L (30-110); Anion Gap 7 mmol/L; Blood Urea Nitrogen 23 mg/dL (9-20); Calcium 9.2 mg/dL (8.4-10.2); Carbon Dioxide 23 mmol/L (22-30); Chloride 107 mmol/L (98-107); D-Dimer 0.28 mg/L FEU (<0.60); Glucose 135 mg/dL (74-99); INR 0.9 (<1.2); Non-African American GFR(CKD) 83 (>60 ml/min/1.73 sqM); Partial Thromboplastin Time 23.4 sec (22.0-30.0); Potassium 3.8 mmol/L (3.5-5.1); Prothrombin Time 9.8 sec (9.0-12.0); Sodium 137 mmol/L (137-145); Total Bilirubin 0.2 mg/dL (0.2-1.3); Total Protein 6.9 g/dL (6.3-8.2)
[2019-10-29 00:30] LABS: Amorphous Sediment,Urine Few /hpf; Appearance,Urine Cloudy (Clear); Bilirubin,Urine Negative (Negative); Blood,Urine Trace (Negative); Color,Urine Yellow; Glucose,Urine (UA) Negative (Negative); Ketones,Urine Negative (Negative); Leukocyte Esterase,Urine Negative (Negative); Mucus,Urine Rare /hpf; Nitrite,Urine Negative (Negative); Protein,Urine Trace (Negative); RBC,Urine 3 /hpf (0-5); Urobilinogen,Urine <2.0 mg/dL (<2.0); WBC,Urine 1 /hpf (0-5)
--- NOTE | 2019-10-29 01:44 | CT ---
EXAMINATION TYPE: CT abdomen pelvis w con DATE OF EXAM: 10/29/2019 COMPARISON: 09/01/2017 HISTORY: abd pain CT DLP: 684.6 mGycm Automated exposure control for dose reduction was used. CONTRAST: Performed with IV Contrast, patient injected with 100 mL of Isovue 300. Lung bases are clear of consolidation. There is minimal subsegmental atelectasis. There is no pericar dial effusion. Stomach is intact. Liver has normal size and contour. There is 2 cm cyst in the anteri or right lobe of the liver. There is mixed density in the dependent gallbladder probably due to multi ple gallstones. The spleen is intact. There is no pancreatic mass. There is no adrenal mass. There is 4 cm cortical cyst anterior right kidney. There is no hydronephros is. Kidneys show satisfactory contrast opacification. Ureters are not dilated. There is no retroperit yates adenopathy. There is markedly enlarged prostate that measures 6.5 cm. There is no inguinal collins ia. There is no free fluid in the pelvis. There is no mesenteric edema. There is no ascites or free air. There is no evidence of a bowel obstru ction. Appendix is not definitely seen. There is no sign of thickened appendix. There are a few scatt ered large bowel diverticula. There is no sign of diverticulitis. Lumbar vertebra have normal alignme nt. There is no compression fracture. Bony pelvis is intact. IMPRESSION: There is probably multiple gallstones. Unchanged. No dilated ducts. Markedly enlarged prostate gland unchanged.
[2019-10-29 02:23] VITALS: BP 116/63; PULSE 76; RESP 18
== END 2019-10-29 02:22 | disposition home or self-care (01) ==
LOC: EC 23:27
DX: R10.30 Lower abdominal pain, unspecified (principal); R11.0 Nausea; Z85.46 Personal history of malignant neoplasm of prostate; Z87.891 Personal history of nicotine dependence
CPT/HCPCS: 36415; 85379; 80053; 82150; 83605; 83690; 85025; 85610; 85730; 81001; 74177; 99285; 96360; 96361; Q9967

== ENCOUNTER 2019-10-30 16:11 | Inpatient (IN) | payer MEDICARE ==
[2019-10-30] MEDS ORDERED: SODIUM CHLORIDE 0.9% 500 ML 500 ML IV STA (17:09)
[2019-10-30] MEDS ORDERED: diphenhydrAMINE 50 MG/ML 1 ML VIAL IVP STA (17:09)
[2019-10-30] MEDS ORDERED: METOCLOPRAMIDE 5 MG/ML 2 ML VIAL IVP STA (17:09)
[2019-10-30 17:33] LABS: Appearance,Urine Clear (Clear); Bilirubin,Urine Negative (Negative); Blood,Urine Trace (Negative); Color,Urine Light Yellow; Glucose,Urine (UA) Negative (Negative); Ketones,Urine Negative (Negative); Leukocyte Esterase,Urine Negative (Negative); Nitrite,Urine Negative (Negative); PH, Urine 5.5 (5.0-8.0); Protein,Urine Negative (Negative); RBC,Urine 1 /hpf (0-5); Specific Gravity,Urine 1.009 (1.001-1.035); Urobilinogen,Urine <2.0 mg/dL (<2.0); WBC,Urine <1 /hpf (0-5)
[2019-10-30 17:47] LABS: Basophils # (A) 0.1 k/uL (0-0.2); Basophils % (A) 1 %; Eosinophils % (A) 1 %; HCT 41.2 % (39.0-53.0); HGB 13.6 gm/dL (13.0-17.5); Lymphocytes # (A) 0.7 k/uL (1.0-4.8); Lymphocytes % (A) 11 %; MCV 90.9 fL (80.0-100.0); Mean Platelet Volume 7.9; Monocytes # (A) 0.4 k/uL (0-1.0); Monocytes % (A) 6 %; Neutrophils # (A) 5.6 k/uL (1.3-7.7); Neutrophils % (A) 81 %; Platelet Count 147 k/uL (150-450); RBC 4.53 m/uL (4.30-5.90); RDW 13.3 % (11.5-15.5); WBC 6.9 k/uL (3.8-10.6)
[2019-10-30 18:01] LABS: Sodium 137 mmol/L (137-145)
[2019-10-30 18:02] LABS: ALT 151 U/L (4-49); AST 307 U/L (17-59); African American GFR (CKD) >90 (>60 ml/min/1.73 sqM); Alkaline Phosphatase 103 U/L (38-126); Amylase 65 U/L (30-110); Anion Gap 8 mmol/L; Blood Urea Nitrogen 21 mg/dL (9-20); Calcium 8.9 mg/dL (8.4-10.2); Carbon Dioxide 24 mmol/L (22-30); Chloride 105 mmol/L (98-107); Glucose 130 mg/dL (74-99); Non-African American GFR(CKD) 85 (>60 ml/min/1.73 sqM); Total Bilirubin 0.6 mg/dL (0.2-1.3); Total Protein 6.5 g/dL (6.3-8.2)
--- NOTE | 2019-10-30 18:07 | XR ---
EXAMINATION TYPE: XR KUB DATE OF EXAM: 10/30/2019 Comparison: None Clinical History: 74 year-old male abdominal pain Findings: Lung bases are clear. No evidence for free intraperitoneal air. No dilated small bowel or air-fluid levels. Scattered mild to moderate stool with air and stool extending distally into the rectum.. No suspicious calcifications seen. Impression: Nonobstructive bowel gas pattern. Mild to moderate stool burden.
--- NOTE | 2019-10-30 19:27 | ED ---
Abdominal Pain HPI - General Source: patient Mode of arrival: ambulatory Limitations: no limitations <Maura Oconnor - Last Filed: 10/30/19 20:31> <Merlin Soriano - Last Filed: 10/30/19 20:35> - General Chief Complaint: Abdominal Pain Stated Complaint: abdominal/back pain Time Seen by Provider: 10/30/19 16:54 - History of Present Illness Initial Comments: 74-year-old male patient presents to the emergency department today for evaluation of generalized abdominal discomfort worse on the left side. Patient states he has been having this pain for the last 2-3 days. States it is intermittent. He states it does seem to worsen with eating. Patient states he did have a similar episode of this pain in May but was fine between then and now. Patient denies any fever or chills. States he does have some nausea but denies vomiting. Denies any constipation or diarrhea. Patient was seen and evaluated here yesterday and underwent extensive lab testing and computed tomography scan of the abdomen and pelvis. States that he was told there were no findings and discharged to follow-up with his doctor. Patient states that his pain seemed to worsen today had 3 episodes of it so he decided to get checked out again. States the pain does radiate through to his back. Denies any history of surgery to his abdomen. Patient denies any recent rash, cough, shortness of breath, chest pain, numbness, tingling, dizziness, weakness, hematuria, dysuria, urinary urgency, urinary frequency, headache, visual angela nges, or any other complaints. (Muara Oconnor) - Related Data Home Medications Medication Instructions Recorded Confirmed Latanoprost [Xalatan 0.005%] 1 drop BOTH EYES HS 05/23/17 09/19/17 Tamsulosin [Flomax] 0.4 mg PO DAILY 09/01/17 09/19/17 Previous Rx's Medication Instructions Recorded Omeprazole [PriLOSEC] 20 mg PO AC-BID #60 cap 06/06/19 Allergies Allergy/AdvReac Type Severity Reaction Status Date / Time No Known Allergies Allergy Verified 10/30/19 16:21 Review of Systems ROS Other: All systems not noted in ROS Statement are negative. <Maura Oconnor - Last Filed: 10/30/19 20:31> ROS Other: All systems not noted in ROS Statement are negative. <BoMerlin - Last Filed: 10/30/19 20:35> ROS Statement: Those systems with pertinent positive or pertinent negative responses have been documented in the HPI. Past Medical History Past Medical History: Cancer, Prostate Disorder Additional Past Medical History / Comment(s): Sciatica, glaucoma enlarged prostate, prostate cancer History of Any Multi-Drug Resistant Organisms: None Reported Past Surgical History: No Surgical Hx Reported Past Psychological History: No Psychological Hx Reported Smoking Status: Former smoker Past Alcohol Use History: None Reported Past Drug Use History: None Reported <Maura Oconnor - Last Filed: 10/30/19 20:31> General Exam Limitations: no limitations General appearance: alert, in no apparent distress, other (This is a well-de veloped, well-nourished elderly male patient in no acute distress. Vital signs upon presentation are temperature 97.8F, pulse 77, respirations 18, blood pressure 112/53, pulse ox 98% on room air.) Eye exam: Present: normal appearance, PERRL, EOMI. Absent: scleral icterus, conjunctival injection, periorbital swelling ENT exam: Present: normal exam, normal oropharynx, mucous membranes moist Respiratory exam: Present: normal lung sounds bilaterally. Absent: respiratory distress, wheezes, rales, rhonchi, stridor Cardiovascular Exam: Present: regular rate, normal rhythm, normal heart sounds. Absent: systolic murmur, diastolic murmur, rubs, gallop, clicks GI/Abdominal exam: Present: soft, tenderness (Mild generalized), normal bowel sounds. Absent: distended, guarding, rebound, rigid Neurological exam: Present: alert, oriented X3, CN II-XII intact Psychiatric exam: Present: normal affect, normal mood Skin exam: Present: warm, dry, intact, normal color. Absent: rash <Maura Oconnor - Last Filed: 10/30/19 20:31> Course <Merlin Soriano - Last Filed: 10/30/19 20:35> Vital Signs 10/30/19 10/30/19 10/30/19 16:16 16:59 18:59 Temperature 97.8 F Pulse Rate 77 72 60 Respiratory 18 18 18 Rate Blood Pressure 112/53 109/70 114/65 O2 Sat by Pulse 98 97 99 Oximetry - Reevaluation(s) Reevaluation #1: 10/30/19 20:35 ACID CORRECTION HAND supervision: I pursued evaluation of this case patient did present with the complaints of abdominal pain this is a second time she came in and last 2 days. Evaluation shows evidence of gallbladder disease. Case is discussed with Dr. Katz. Patient will be admitted. (Merlin Soriano) Medical Decision Making - Lab Data Result diagrams: 10/30/19 17:24 10/30/19 17:24 - Radiology Data Radiology results: report reviewed, image reviewed <Maura Oconnor - Last Filed: 10/30/19 20:31> - Lab Data Result diagrams: 10/30/19 17:24 10/30/19 17:24 <Merlin Soriano - Last Filed: 10/30/19 20:35> - Medical Decision Making 74-year-old male patient presented to the emergency department for the second day in a row complaining of abdominal pain, states is mostly generalized but seems to come in waves. States he is nauseated and has not vomited. Physical examination did reveal upper abdominal tenderness. Labs reviewed and did reveal elevated liver enzymes. Ultrasound was obtained and showed evidence for an enlarged hypertrophic gallbladder with thickened wall, dilated common bile duct, and multiple gallstones. He is afebrile. Upon reevaluation is improved. Did discuss the case with the on-call surgeon Dr. Katz who will admit patient for evaluation in the morning. Will give a dose of Zosyn. (Maura Oconnor) - Lab Data Lab Results 10/30/19 10/30/19 10/30/19 Range/Units 17:13 17:24 17:24 WBC 6.9 (3.8-10.6) k/uL RBC 4.53 (4.30-5.90) m/uL Hgb 13.6 (13.0-17.5) gm/dL Hct 41.2 (39.0-53.0) % MCV 90.9 (80.0-100.0) fL MCH 30.0 (25.0-35.0) pg MCHC 33.0 (31.0-37.0) g/dL RDW 13.3 (11.5-15.5) % Plt Count 147 L (150-450) k/uL Neutrophils % 81 % Lymphocytes % 11 % Monocytes % 6 % Eosinophils % 1 % Basophils % 1 % Neutrophils # 5.6 (1.3-7.7) k/uL Lymphocytes # 0.7 L (1.0-4.8) k/uL Monocytes # 0.4 (0-1.0) k/uL Eosinophils # 0.0 (0-0.7) k/uL Basophils # 0.1 (0-0.2) k/uL Sodium 137 (137-145) mmol/L Potassium 4.0 (3.5-5.1) mmol/L Chloride 105 (98-107) mmol/L Carbon Dioxide 24 (22-30) mmol/L Anion Gap 8 mmol/L BUN 21 H (9-20) mg/dL Creatinine 0.89 (0.66-1.25) mg/dL Est GFR (CKD-EPI)AfAm >90 (>60 ml/min/1.73 sqM) Est GFR (CKD-EPI)NonAf 85 (>60 ml/min/1.73 sqM) Glucose 130 H (74-99) mg/dL Plasma Lactic Acid Ramírez (0.7-2.0) mmol/L Calcium 8.9 (8.4-10.2) mg/dL Total Bilirubin 0.6 (0.2-1.3) mg/dL AST 307 H (17-59) U/L ALT 151 H (4-49) U/L Alkaline Phosphatase 103 (38-126) U/L Total Protein 6.5 (6.3-8.2) g/dL Albumin 4.0 (3.5-5.0) g/dL Amylase 65 (30-110) U/L Lipase 135 (23-300) U/L Urine Color Light Yellow Urine Appearance Clear (Clear) Urine pH 5.5 (5.0-8.0) Ur Specific [place] 1.009 (1.001-1.035) Urine Protein Negative (Negative) Urine Glucose (UA) Negative (Negative) Urine Ketones Negative (Negative) Urine Blood Trace H (Negative) Urine Nitrite Negative (Negative) Urine Bilirubin Negative (Negative) Urine Urobilinogen <2.0 (<2.0) mg/dL Ur Leukocyte Esterase Negative (Negative) Urine RBC 1 (0-5) /hpf Urine WBC <1 (0-5) /hpf 10/30/19 Range/Units 17:24 WBC (3.8-10.6) k/uL RBC (4.30-5.90) m/uL Hgb (13.0-17.5) gm/dL Hct (39.0-53.0) % MCV (80.0-100.0) fL MCH (25.0-35.0) pg MCHC (31.0-37.0) g/dL RDW (11.5-15.5) % Plt Count (150-450) k/uL Neutrophils % % Lymphocytes % % Monocytes % % Eosinophils % % Basophils % % Neutrophils # (1.3-7.7) k/uL Lymphocytes # (1.0-4.8) k/uL Monocytes # (0-1.0) k/uL Eosinophils # (0-0.7) k/uL Basophils # (0-0.2) k/uL Sodium (137-145) mmol/L Potassium (3.5-5.1) mmol/L Chloride (98-107) mmol/L Carbon Dioxide (22-30) mmol/L Anion Gap mmol/L BUN (9-20) mg/dL Creatinine (0.66-1.25) mg/dL Est GFR (CKD-EPI)AfAm (>60 ml/min/1.73 sqM) Est GFR (CKD-EPI)NonAf (>60 ml/min/1.73 sqM) Glucose (74-99) mg/dL Plasma Lactic Acid Ramírez 1.0 (0.7-2.0) mmol/L Calcium (8.4-10.2) mg/dL Total Bilirubin (0.2-1.3) mg/dL AST (17-59) U/L ALT (4-49) U/L Alkaline Phosphatase (38-126) U/L Total Protein (6.3-8.2) g/dL Albumin (3.5-5.0) g/dL Amylase (30-110) U/L Lipase (23-300) U/L Urine Color Urine Appearance (Clear) Urine pH (5.0-8.0) Ur Specific [place] (1.001-1.035) Urine Protein (Negative) Urine Glucose (UA) (Negative) Urine Ketones (Negative) Urine Blood (Negative) Urine Nitrite (Negative) Urine Bilirubin (Negative) Urine Urobilinogen (<2.0) mg/dL Ur Leukocyte Esterase (Negative) Urine RBC (0-5) /hpf Urine WBC (0-5) /hpf - Radiology Data KUB x-ray was obtained. Report was reviewed in its entirety. Impression by Dr. Schwarz shows nonobstructive bowel gas pattern. Mild to moderate stool burden. (Maura Oconnor) Disposition Decision to Admit Reason: Admit from EC Decision Date: 10/30/19 Decision Time: 20:00 <Maura Oconnor - Last Filed: 10/30/19 20:31> <Merlin Soriano - Last Filed: 10/30/19 20:35> Clinical Impression: Cholecystitis, Abdominal pain Disposition: ADMITTED IP TO THIS [facility] Condition: Serious Referrals: Sharif Okeefe MD [Primary Care Provider] - 1-2 days
--- NOTE | 2019-10-30 19:27 | US ---
EXAMINATION TYPE: US abdomen limited DATE OF EXAM: 10/30/2019 COMPARISON: Correlation CT 10/29/2019 CLINICAL HISTORY: 74-year-old male Abdominal Pain; Elevated Liver Enzymes. Abdominal pain x 3 days. E levated liver enzymes. Patient currently has prostate cancer. TECHNIQUE: Multiple sonographic images of the right upper quadrant are obtained. FINDINGS: EXAM MEASUREMENTS: Liver Length: 16.9 cm Gallbladder Wall: 0.48 cm CBD: 0.64 cm Right Kidney: 11.1 x 5.2 x 5.2 cm Pancreas: Suboptimal visualization of the pancreatic head and tail due to shadowing from bowel gas. Visualized body shows no gross abnormal body. Liver: Lobulated mixed lesion measuring 2.3 x 2.0 x 1.7 cm in the anterior right liver lobe. No othe r focal lesion. Gallbladder: Appears distended measuring 11.98 cm in length. Hyperechoic areas seen within gallbladd er and a lot of shadowing is seen. Wall appears thickened. Evidence for sonographic Mcdonald's sign: No CBD: Measures upper limits of normal. Right Kidney: Two simple cortical cysts. #1 measures: 1.1 x 1.0 x 1.1 cm. #2 measures: 4.2 x 3.7 x 3 .6 cm. No hydronephrosis. IMPRESSION: 1. Hydropic gallbladder with mild wall thickening and numerous gallstones filling the lumen. Consider chronic cholecystitis. If right upper quadrant pain and concern for developing acute cholecystitis, HIDA scan can be performed. 2. Indeterminate 2.3 cm lobulated lesion within the anterior liver, possible mildly complex/complicat ed cyst. Six-month follow-up ultrasound recommended to reassess. 3. Borderline bile duct caliber at 6 mm may be normal for the patient, given age. Correlate with rosemary line phosphatase and bilirubin levels.
[2019-10-30] MEDS ORDERED: NALOXONE 0.4 MG/ML 1 ML VIAL IV PRN (19:56)
[2019-10-30] MEDS ORDERED: PIPERACILLIN-TAZOBACTAM 3.375 GM in SODIUM CHLORIDE 0.9% 100 ML IVPB STA (19:59)
[2019-10-30] MEDS: SODIUM CHLORIDE 0.9% 1,000 ML IV SCH (20:37)
[2019-10-30] MEDS ORDERED: ONDANSETRON 4 MG/2 ML VIAL IVP PRN (22:34)
[2019-10-30] MEDS: HYDROmorphone 0.5 MG/0.5 ML SYRINGE IVP PRN (23:17)
[2019-10-30] MEDS: LATANOPROST 0.005% OPHTH DROPS 2.5 ML BTL BOTH EYES SCH (23:17)
[2019-10-31 05:35] LABS: Basophils % (A) 0 %; Eosinophils # (A) 0.1 k/uL (0-0.7); Eosinophils % (A) 2 %; HGB 13.5 gm/dL (13.0-17.5); Lymphocytes # (A) 0.6 k/uL (1.0-4.8); Lymphocytes % (A) 11 %; MCH 29.1 pg (25.0-35.0); MCHC 31.3 g/dL (31.0-37.0); MCV 92.8 fL (80.0-100.0); Mean Platelet Volume 8.4; Monocytes # (A) 0.4 k/uL (0-1.0); Monocytes % (A) 8 %; Neutrophils % (A) 77 %; Platelet Count 148 k/uL (150-450); RBC 4.63 m/uL (4.30-5.90); RDW 13.4 % (11.5-15.5); WBC 5.1 k/uL (3.8-10.6)
[2019-10-31] MEDS: PIPERACILLIN-TAZOBACTAM 3.375 GM in SODIUM CHLORIDE 0.9% 100 ML IVPB SCH ×3 (05:43→22:02)
[2019-10-31 05:52] LABS: ALT 620 U/L (4-49); AST 579 U/L (17-59); African American GFR (CKD) >90 (>60 ml/min/1.73 sqM); Albumin 3.8 g/dL (3.5-5.0); Alkaline Phosphatase 110 U/L (38-126); Anion Gap 4 mmol/L; Blood Urea Nitrogen 16 mg/dL (9-20); Calcium 8.4 mg/dL (8.4-10.2); Carbon Dioxide 25 mmol/L (22-30); Chloride 108 mmol/L (98-107); Glucose 109 mg/dL (74-99); Non-African American GFR(CKD) >90 (>60 ml/min/1.73 sqM); Potassium 3.8 mmol/L (3.5-5.1); Sodium 137 mmol/L (137-145); Total Bilirubin 2.4 mg/dL (0.2-1.3); Total Protein 6.3 g/dL (6.3-8.2)
[2019-10-31] MEDS: SODIUM CHLORIDE 0.9% 1,000 ML IV SCH ×2 (09:12→23:47)
[2019-10-31] MEDS: TAMSULOSIN 0.4 MG CAP.ER.24H PO SCH (09:13)
--- NOTE | 2019-10-31 11:40 | P.GSHP ---
History of Present Illness H&P Date: 10/31/19 Chief Complaint: Abdominal pain CHIEF COMPLAINT: Abdominal pain HISTORY OF PRESENT ILLNESS: 74-year-old male who presented to the emergency room a 2 component of abdominal pain. Patient reports pain is in the epigastric region and right upper quadrant. He states his pain started yesterday. He also reports the pain radiated to his back. Patient reported nausea but denies any episodes of vomiting. Denied fever or chills. PAST MEDICAL HISTORY: See list. PAST SURGICAL HISTORY: See list. SOCIAL HISTORY: No illicit drug use. REVIEW OF SYSTEMS: CONSTITUTIONAL: Denies fever or chills. HEENT: Denies blurred vision, vision changes, or eye pain. Denies hemoptysis CARDIOVASCULAR: Denies chest pain or pressure. RESPIRATORY: No shortness of breath. GASTROINTESTINAL: Refer to [facility] for pertinent findings HEMATOLOGIC: Denies bleeding disorders. GENITOURINARY: Denies any blood in urine. SKIN: Denies pruitis. Denies rash. PHYSICAL EXAM: VITAL SIGNS: Reviewed. GENERAL: Well-developed in no acute distress. HEENT: No sclera icterus. Extraocular movements grossly intact. Moist buccal mucosa. Head is atraumatic, normocephalic. ABDOMEN: Soft. Nondistended. Mild tenderness with palpation of epigastric region and right upper quadrant. NEUROLOGIC: Alert and oriented. Cranial nerves II through XII grossly intact. LABORATORY DATA: WBC 5.1. Hemoglobin 13.5. Platelet count 148. IMAGING: Abdominal ultrasound: Gallbladder appears distended measuring 11.98 cm in length. Gallbladder wall appears thickened. Common bile duct measures upper limits of normal. Numerous gallstones. ASSESSMENT: 1. Abdominal pain 2. Acute cholecystitis 3. Elevated bilirubin, transaminitis, cannot rule out choledocholithiasis PLAN: -Continue antibiotics -Monitor CMP. Repeat in AM -Consult GI for evaluation -Patient tentatively scheduled for laparoscopic cholecystectomy tomorrow with Dr. Katz Nurse practitioner note has been reviewed by physician. Signing provider agrees with the documented findings, assessment, and plan of care. Past Medical History Past Medical History: Cancer, Prostate Disorder Additional Past Medical History / Comment(s): Sciatica, glaucoma enlarged prostate, prostate cancer no treatment so far.. patient states he had biospy but unsure of what it said. Patient said he had injections in his abdomen and back for prostate cancer but no chemo or rad. No surgery. Was seeing in [place]... but now see's doctor in [place]. History of Any Multi-Drug Resistant Organisms: None Reported Past Surgical History: No Surgical Hx Reported Past Anesthesia/Blood Transfusion Reactions: No Reported Reaction Past Psychological History: No Psychological Hx Reported Smoking Status: Former smoker Past Alcohol Use History: None Reported Past Drug Use History: None Reported - Past Family History Mother Family Medical History: Cancer Additional Family Medical History / Comment(s): Breast cancer Medications and Allergies Home Medications Medication Instructions Recorded Confirmed Type Latanoprost [Xalatan 0.005%] 1 drop BOTH EYES HS 05/23/17 10/30/19 History Tamsulosin [Flomax] 0.4 mg PO DAILY 09/01/17 10/30/19 History Allergies Allergy/AdvReac Type Severity Reaction Status Date / Time No Known Allergies Allergy Verified 10/30/19 21:46 Surgical - Exam Vital Signs Temp Pulse Resp BP Pulse Ox 97.8 F 77 18 112/53 98 10/30/19 16:16 10/30/19 16:16 10/30/19 16:16 10/30/19 16:16 10/30/19 16:16 Results - Labs 10/31/19 05:24 10/31/19 05:24 Abnormal Lab Results - Last 24 Hours (Table) 10/30/19 10/30/19 10/30/19 Range/Units 17:13 17:24 17:24 Plt Count 147 L (150-450) k/uL Lymphocytes # 0.7 L (1.0-4.8) k/uL Chloride (98-107) mmol/L BUN 21 H (9-20) mg/dL Glucose 130 H (74-99) mg/dL Total Bilirubin (0.2-1.3) mg/dL AST 307 H (17-59) U/L ALT 151 H (4-49) U/L Urine Blood Trace H (Negative) 10/31/19 10/31/19 Range/Units 05:24 05:24 Plt Count 148 L (150-450) k/uL Lymphocytes # 0.6 L (1.0-4.8) k/uL Chloride 108 H (98-107) mmol/L BUN (9-20) mg/dL Glucose 109 H (74-99) mg/dL Total Bilirubin 2.4 H (0.2-1.3) mg/dL AST 579 H (17-59) U/L ALT 620 H (4-49) U/L Urine Blood (Negative) Diabetes panel 10/30/19 10/31/19 Range/Units 17:24 05:24 Sodium 137 137 (137-145) mmol/L Potassium 4.0 3.8 (3.5-5.1) mmol/L Chloride 105 108 H (98-107) mmol/L Carbon Dioxide 24 25 (22-30) mmol/L BUN 21 H 16 (9-20) mg/dL Creatinine 0.89 0.76 (0.66-1.25) mg/dL Glucose 130 H 109 H (74-99) mg/dL Calcium 8.9 8.4 (8.4-10.2) mg/dL AST 307 H 579 H (17-59) U/L ALT 151 H 620 H (4-49) U/L Alkaline Phosphatase 103 110 (38-126) U/L Total Protein 6.5 6.3 (6.3-8.2) g/dL Albumin 4.0 3.8 (3.5-5.0) g/dL Calcium panel 10/30/19 10/31/19 Range/Units 17:24 05:24 Calcium 8.9 8.4 (8.4-10.2) mg/dL Albumin 4.0 3.8 (3.5-5.0) g/dL Pituitary panel 10/30/19 10/31/19 Range/Units 17:24 05:24 Sodium 137 137 (137-145) mmol/L Potassium 4.0 3.8 (3.5-5.1) mmol/L Chloride 105 108 H (98-107) mmol/L Carbon Dioxide 24 25 (22-30) mmol/L BUN 21 H 16 (9-20) mg/dL Creatinine 0.89 0.76 (0.66-1.25) mg/dL Glucose 130 H 109 H (74-99) mg/dL Calcium 8.9 8.4 (8.4-10.2) mg/dL Adrenal panel 10/30/19 10/31/19 Range/Units 17:24 05:24 Sodium 137 137 (137-145) mmol/L Potassium 4.0 3.8 (3.5-5.1) mmol/L Chloride 105 108 H (98-107) mmol/L Carbon Dioxide 24 25 (22-30) mmol/L BUN 21 H 16 (9-20) mg/dL Creatinine 0.89 0.76 (0.66-1.25) mg/dL Glucose 130 H 109 H (74-99) mg/dL Calcium 8.9 8.4 (8.4-10.2) mg/dL Total Bilirubin 0.6 2.4 H (0.2-1.3) mg/dL AST 307 H 579 H (17-59) U/L ALT 151 H 620 H (4-49) U/L Alkaline Phosphatase 103 110 (38-126) U/L Total Protein 6.5 6.3 (6.3-8.2) g/dL Albumin 4.0 3.8 (3.5-5.0) g/dL
[2019-10-31] MEDS: HYDROmorphone 0.5 MG/0.5 ML SYRINGE IVP PRN ×2 (14:10→22:03)
[2019-10-31] MEDS: HEPARIN SODIUM,PORCINE 5,000 UNIT/ML 1 ML VIAL SQ SCH ×2 (16:43→23:47)
--- NOTE | 2019-10-31 21:30 | P.CONS ---
History of Present Illness - Reason for Consult Consult date: 10/31/19 Elevated liver enzymes Requesting physician: Mak Katz - Chief Complaint Abdominal pain - History of Present Illness 74-year-old male with a medical history significant for prostate cancer who presented to the hospital with complaints of abdominal pain. He reports severe abdominal pain of of the umbilicus with some radiation into the back. He describes a severe pressure-like pain currently improved. The pain occurred and lasted days in duration. He does report some nausea in association with the pain. Denies any change in bowel habits. He did have similar pain to this in April. No leukocytosis on presentation with WBC 5.1, hemoglobin 13.5, platelet count 248,000, amylase 65, lipase 135. The patient did however have a jump in his liver enzymes with total bilirubin 0.6-2.4, alkaline phosphatase is 103-110, AST 317-579 and ALT 151-620. Ultrasound of the abdomen did show an enlarged gallbladder with gallbladder wall thickening and gallstones a 0.6 cm CBD and a possible liver cyst. Currently patient is sitting in bedside reporting pain is improved. Review of Systems REVIEW OF SYSTEMS: CONSTITUTIONAL: Denies any fevers, chills, weight change or fatigue. CARDIOVASCULAR: Denies any chest pain, palpitations high or low blood pressures RESPIRATORY: Denies any shortness of breath, hemoptysis or cough. GENITOURINARY: No dysuria or hematuria. MUSCULOSKELETAL: No weakness reported. SKIN: Denies any new rashes or lesions, jaundice or pallor. PSYCHIATRIC: Denies any depression or anxiety. NEUROLOGY: Denies headache, denies any new focal deficits. EARS/NOSE/THROAT: No recent hearing change, congestion, nasal discharge or sore throat. EYES: No pain in eyes, discharge or change in vision. GASTROINTESTINAL: As per HPI. Past Medical History Past Medical History: Cancer, Prostate Disorder Additional Past Medical History / Comment(s): Sciatica, glaucoma enlarged prostate, prostate cancer no treatment so far.. patient states he had biospy but unsure of what it said. Patient said he had injections in his abdomen and back for prostate cancer but no chemo or rad. No surgery. Was seeing in [facility]... but now see's doctor in [place]. History of Any Multi-Drug Resistant Organisms: None Reported Past Surgical History: No Surgical Hx Reported Past Anesthesia/Blood Transfusion Reactions: No Reported Reaction Past Psychological History: No Psychological Hx Reported Smoking Status: Former smoker Past Alcohol Use History: None Reported Past Drug Use History: None Reported - Past Family History Mother Family Medical History: Cancer Additional Family Medical History / Comment(s): Breast cancer Medications and Allergies Home Medications Medication Instructions Recorded Confirmed Type Latanoprost [Xalatan 0.005%] 1 drop BOTH EYES HS 05/23/17 10/30/19 History Tamsulosin [Flomax] 0.4 mg PO DAILY 09/01/17 10/30/19 History Allergies Allergy/AdvReac Type Severity Reaction Status Date / Time No Known Allergies Allergy Verified 10/30/19 21:46 Physical Exam Vitals: Vital Signs Temp Pulse Pulse Resp BP BP Pulse Ox 10/31/19 08:35 16 10/31/19 04:53 98.4 F 78 16 123/70 97 10/30/19 21:29 98.2 F 67 18 131/72 98 10/30/19 18:59 60 18 114/65 99 10/30/19 16:59 72 18 109/70 97 10/30/19 16:16 97.8 F 77 18 112/53 98 Intake and Output 10/30/19 10/31/19 10/31/19 22:59 06:59 14:59 Intake Total 750 700 Balance 750 700 Intake: Intake, IV Titration 150 700 Amount Piperacillin-Tazobactam 3 100 .375 gm In Sodium Chloride 0.9% 100 ml @ 25 mls/hr IVPB Q8H [facility] Rx#: [id number] Sodium Chloride 0.9% 1, 150 600 000 ml @ 75 mls/hr IV . [id number] [facility] Rx#:[id number] Oral 600 Other: Voiding Method Toilet Toilet Urinal Urinal # Voids 3 4 Weight 64.41 kg On physical examination, patient appears comfortable in no apparent distress. HEAD: Normocephalic, atraumatic. EYES: No scleral icterus. No conjunctival injection. MOUTH: No lesions, tongue midline. NECK: Trachea midline, no gross abnormalities. CHEST: Clear to auscultation with no wheezing or rhonchi appreciated. HEART: Regular rate and rhythm. ABDOMEN: Soft, mildly tender to palpation. Bowel sounds are positive. No organomegaly. No guarding or rigidity. EXTREMITIES: No pedal edema. SKIN: No rashes, no jaundice. NEUROLOGIC: Alert and oriented x3. No focal deficits. Results CBC & Chem 7: 10/31/19 05:24 10/31/19 05:24 Labs: Abnormal Lab Results - Last 24 Hours (Table) 10/30/19 10/30/19 10/30/19 Range/Units 17:13 17:24 17:24 Plt Count 147 L (150-450) k/uL Lymphocytes # 0.7 L (1.0-4.8) k/uL Chloride (98-107) mmol/L BUN 21 H (9-20) mg/dL Glucose 130 H (74-99) mg/dL Total Bilirubin (0.2-1.3) mg/dL AST 307 H (17-59) U/L ALT 151 H (4-49) U/L Urine Blood Trace H (Negative) 10/31/19 10/31/19 Range/Units 05:24 05:24 Plt Count 148 L (150-450) k/uL Lymphocytes # 0.6 L (1.0-4.8) k/uL Chloride 108 H (98-107) mmol/L BUN (9-20) mg/dL Glucose 109 H (74-99) mg/dL Total Bilirubin 2.4 H (0.2-1.3) mg/dL AST 579 H (17-59) U/L ALT 620 H (4-49) U/L Urine Blood (Negative) Assessment and Plan (1) Elevated liver enzymes Narrative/Plan: 74-year-old male presenting with abdominal pain, recurrent with prior episode in April found to have cholecystitis on imaging with ultrasound showing gallbladder wall thickening and a distended gallbladder with cholelithiasis noted and a 0.6 common bile duct. Liver enzymes increase today at total bilirubin 2.4, alkaline phosphatase 110, AST 579 and ALT 620. Unclear if this is secondary to the underlying infection, a gallstone which is passed through the common bile duct or a retained stone. Symptomatically patient reporting improved symptoms. Current Visit: Yes Status: Acute Code(s): R74.8 - ABNORMAL LEVELS OF OTHER SERUM ENZYMES SNOMED Code(s): 008074801 (2) Abnormal liver diagnostic imaging Narrative/Plan: Likely liver cyst on ultrasound imaging with repeat imaging recommended by radiology in 3-6 months for follow-up. Current Visit: Yes Status: Acute Code(s): R93.2 - ABNORMAL FINDINGS ON DX IMAGING OF LIVER AND BILIARY TRACT SNOMED Code(s): 348167965 (3) Abdominal pain Current Visit: Yes Status: Acute Code(s): R10.9 - UNSPECIFIED ABDOMINAL PAIN SNOMED Code(s): 23400348 (4) Cholecystitis Current Visit: Yes Status: Acute Code(s): K81.9 - CHOLECYSTITIS, UNSPECIFIED SNOMED Code(s): 27253907 Plan: Supportive care Diet per surgical service Continue broad-spectrum antibiotic therapy Continue to monitor CBC, BMP and liver enzymes MRCP ordered to rule out choledocholithiasis Further recommendations pending findings of imaging Thank you for allowing us to participate in the care of the patient
[2019-10-31] MEDS: LATANOPROST 0.005% OPHTH DROPS 2.5 ML BTL BOTH EYES SCH (22:02)
--- NOTE | 2019-11-01 00:22 | CONS ---
CONSULTATION A 74-year-old [place] male presents to the hospital with abdominal pain, umbilicus radiating to the back, pressure-like activity. Pain occurred the last few days. He was admitted with acute cholecystitis with possible choledocholithiasis. ERCP may be needed due to elevated liver enzymes and stones. He just wanted to get the treatment to get fixed. REVIEW OF SYSTEMS: Fourteen-point review of systems negative except for mentioned in HPI. PAST MEDICAL HISTORY: Cancer, prostate disorder, sciatica, glaucoma, enlarged prostate. SOCIAL HISTORY: Former smoker. No alcohol. No drugs. FAMILY HISTORY: Mother with breast cancer. HOME MEDICINES: Flomax, latanoprost. ALLERGIES: Negative. PHYSICAL EXAMINATION: Temp 98.4, pulse 60s to 70s, respiratory rate 16 to 18, blood pressure is 109 to 114 over 60s to 70s. CARDIOVASCULAR: S1, S2. LUNGS: Transmitted upper airway sounds. HEMATOLOGY: Negative Homans. PSYCH: Fair mood and affect. NEUROLOGIC: Alert and orient x3. OPHTHALMOLOGIC: Pupils equal, round, reactive to light and accommodation. White count 5.1, hemoglobin 13.92, bilirubin is 2.4, glucose 109, AST 579, ALT 620. ASSESSMENT: Elevated liver enzymes, possibly choledocholithiasis, possible gallstone. Surgery will be needed after ERCP or MRCP in the morning. Medically stable for surgery. MMODL / IJN: [id number] /
[2019-11-01] MEDS: HYDROmorphone 0.5 MG/0.5 ML SYRINGE IVP PRN ×2 (04:15→15:10)
[2019-11-01] MEDS: PIPERACILLIN-TAZOBACTAM 3.375 GM in SODIUM CHLORIDE 0.9% 100 ML IVPB SCH ×3 (05:48→20:19)
[2019-11-01 07:15] LABS: ALT 389 U/L (4-49); AST 134 U/L (17-59); African American GFR (CKD) >90 (>60 ml/min/1.73 sqM); Albumin 3.5 g/dL (3.5-5.0); Alkaline Phosphatase 116 U/L (38-126); Anion Gap 5 mmol/L; Blood Urea Nitrogen 12 mg/dL (9-20); Calcium 8.3 mg/dL (8.4-10.2); Carbon Dioxide 25 mmol/L (22-30); Chloride 109 mmol/L (98-107); Glucose 95 mg/dL (74-99); Non-African American GFR(CKD) 87 (>60 ml/min/1.73 sqM); Potassium 3.9 mmol/L (3.5-5.1); Sodium 139 mmol/L (137-145); Total Bilirubin 0.8 mg/dL (0.2-1.3); Total Protein 6.1 g/dL (6.3-8.2)
[2019-11-01] MEDS: HEPARIN SODIUM,PORCINE 5,000 UNIT/ML 1 ML VIAL SQ SCH ×4 (08:39→23:14)
[2019-11-01] MEDS: TAMSULOSIN 0.4 MG CAP.ER.24H PO SCH ×2 (08:40→15:10)
[2019-11-01] MEDS: PANTOPRAZOLE 40 MG/10 ML VIAL IVP SCH (08:41)
[2019-11-01] MEDS ORDERED: IV FLUID CONTINUATION 300 ML IV ONE (09:23)
[2019-11-01] MEDS ORDERED: NEOSTIGMINE 1 MG/ML 10 ML VIAL ONE (10:12)
[2019-11-01] MEDS ORDERED: KETOROLAC 30 MG/ML 1 ML VIAL ONE (10:12)
[2019-11-01] MEDS ORDERED: fentaNYL (PF) 50 MCG/ML 2 ML AMP ONE (10:12)
[2019-11-01] MEDS ORDERED: GLYCOPYRROLATE 0.2 MG/ML 2 ML VIAL ONE (10:12)
[2019-11-01] MEDS ORDERED: PROPOFOL 10 MG/ML 20 ML VIAL IV ONE (10:12)
[2019-11-01] MEDS ORDERED: MIDAZOLAM 2 MG/2 ML VIAL ONE (10:12)
[2019-11-01] MEDS ORDERED: LIDOCAINE 1% INJ 10MG/ML (20 ML MDV) ONE (10:12)
[2019-11-01] MEDS ORDERED: SUCCINYLCHOLINE CHLORIDE 100 MG/5 ML SYR IV ONE (10:12)
[2019-11-01] MEDS ORDERED: LACTATED RINGERS 1,000 ML IV ONE (10:33)
[2019-11-01] MEDS ORDERED: BUPIVACAIN-EPI 0.25%-1:200,000 30 ML VIAL SQ ONE (10:38)
--- NOTE | 2019-11-01 11:04 | P.OP ---
Date of Procedure: 11/01/19 Preoperative Diagnosis: Cholecystitis Cholelithiasis Postoperative Diagnosis: Cholecystitis Cholelithiasis Procedure(s) Performed: Laparoscopic cholecystectomy Anesthesia: EDIN Surgeon: Mak Katz Estimated Blood Loss (ml): 5 Pathology: other (Gallbladder) Condition: stable Disposition: PACU Description of Procedure: The patient was placed on the operating table. The patient received a general endotracheal tube anesthesia. The patients abdomen was prepped and draped in the usual sterile fashion. Through an infraumbilical stab incision, the fascia of the anterior abdominal wall was grasped with a pair of Kochers and then the Veress needle was placed in the peritoneal cavity. Position of the Veress needle was confirmed with positive drop test. The abdomen was then insufflated. After adequate insufflation, the 10 mm trocar was placed in the peritoneal cavity. Following this the laparoscope was placed in the peritoneal cavity. The patient was placed in the head-up, right side up position and then a 5 mm trocar was placed in the right lateral and right subcostal position under direct visualization. A 8 mm trocar was placed in the epigastric position. The gallbladder was grasped in the fundus and infundibulum. Traction on the gallbladder was placed in the lateral and the cephalad positions. The triangle of Calot was visualized.. The cystic duct was bluntly dissected until the union of the cystic duct and common bile duct wa s seen. A critical view of safety was achieved. The cystic duct was then divided and sealed with the Harmonic scissors. A PDS Endoloop was then placed throughout the cystic duct stump. The cystic artery divided and sealed with the Harmonic scissors. The gallbladder was then removed from the liver bed using Harmonic scissors. The gallbladder was then extracted through the epigastric port site. Operative field was checked for any bleeding spots and Harmonic scissors was used to coagulate the liver bed. The abdomen was irrigated. The trocars were removed. The skin was closed using interrupted 3-0 Vicryl suture. Dermabond dressing were applied. The patient tolerated the procedure well.
[2019-11-01] MEDS ORDERED: HYDROmorphone 1 MG/ML 1 ML SYRINGE IVP ONE ×4 (11:33→11:56)
[2019-11-01 11:50] LABS: Hepatitis A Antibody IgM Non-Reactive (Non-Reactive); Hepatitis B Core IgM Non-Reactive (Non-Reactive); Hepatitis B Surface Antigen Non-Reactive (Non-Reactive); Hepatitis C IgG Antibody Non-Reactive (Non-Reactive)
[2019-11-01] MEDS: SODIUM CHLORIDE 0.9% 1,000 ML IV SCH ×2 (12:05→13:10)
--- NOTE | 2019-11-01 18:15 | P.PN ---
Subjective Progress Note Date: 11/01/19 Is a 74-year-old gentleman with elevated liver enzymes, possibly choledocholithiasis, possibly gallstones. Evaluated by both surgery and GI. MRCP initially had been scheduled secondary to elevated LFTs/T bili. LFTs significantly improved with T bili within normal limits, MRCP canceled. Hepatitis serology nonreactive. Scheduled for a laproscopic cholecystectomy today. Pain currently controlled. Denies chest pain, palpitations or shortness of breath. Objective - Vital Signs Vital signs: Vital Signs Temp 97.9 F 11/01/19 12:15 Pulse 88 11/01/19 13:15 Resp 16 11/01/19 12:15 BP 128/68 11/01/19 13:15 Pulse Ox 97 11/01/19 12:15 Intake & Output 10/31/19 11/01/19 11/01/19 18:59 06:59 18:59 Intake Total 4272 477 4032 Output Total 250 5 Balance 1400 -150 1545 Intake: IV 1100 Intake, IV Titration 850 100 450 Amount Piperacillin-Tazobactam 3 200 100 .375 gm In Sodium Chloride 0.9% 100 ml @ 25 mls/hr IVPB Q8H [facility] Rx#: [id number] Sodium Chloride 0.9% 1, 650 450 000 ml @ 75 mls/hr IV . [id number] [facility] Rx#:[id number] Oral 550 0 Output: Urine 250 Estimated Blood Loss 5 Other: Voiding Method Toilet Toilet Toilet Urinal Urinal Urinal # Voids 4 2 - Exam PHYSICAL EXAM: VITAL SIGNS: As above GENERAL: Sitting up in bed, no acute distress HEENT: Conjunctivae normal. eyes normal. NECK: No JVD. No thyroid enlargement. No LNs CARDIOVASCULAR: S1, S2 regular.. No murmur RESPIRATION: Breath sounds diminished in the bases. No rhonchi or crackles. No b ronchial breathing. ABDOMEN: Soft, right upper quadrant tenderness, No guarding. no masses palpabl e. Bowel sounds heard. LEGS: No edema. no swelling PSYCHIATRY: Alert and oriented X3, mood and affect normal. NERVOUS SYSTEM: Cranial N 2-12 grossly normal. Moves all 4 limbs. Diffuse weakness No focal deficits. Strength and sensation grossly intact.. Skin: no rash - Labs CBC & Chem 7: 10/31/19 05:24 11/01/19 06:31 Labs: Abnormal Lab Results - Last 24 Hours (Table) 11/01/19 Range/Units 06:31 Chloride 109 H (98-107) mmol/L Calcium 8.3 L (8.4-10.2) mg/dL AST 134 H (17-59) U/L ALT 389 H (4-49) U/L Total Protein 6.1 L (6.3-8.2) g/dL Assessment and Plan Assessment: Abdominal pain, possible acute cholecystitis Elevated bilirubin, transaminitis possible choledocholithiasis; possibly gallstone passed as T bili now within normal limits, LFTs significantly improved Abnormal liver ultrasound, reporting liver cyst, repeat imaging outpatient in 3 months Plan: Continue on current medication regime ,monitoring and symptomatic treatment. NPO, laparoscopic cholecystectomy pending. Further recommendations to follow. The impression and plan of care has been dictated as directed. : I performed a history and examination of this patient, discussed the same with the dictator. I agree with the dictator's note ,documented as a scribe. Any additional findings or plans will be noted.
[2019-11-01] MEDS: HYDROmorphone 1 MG/ML 1 ML SYRINGE IVP PRN ×2 (19:13→22:58)
[2019-11-01] MEDS: LATANOPROST 0.005% OPHTH DROPS 2.5 ML BTL BOTH EYES SCH (20:19)
[2019-11-02] MEDS: HYDROmorphone 1 MG/ML 1 ML SYRINGE IVP PRN ×2 (02:31→07:05)
[2019-11-02] MEDS: SODIUM CHLORIDE 0.9% 1,000 ML IV SCH (02:31)
[2019-11-02] MEDS: PIPERACILLIN-TAZOBACTAM 3.375 GM in SODIUM CHLORIDE 0.9% 100 ML IVPB SCH (04:52)
[2019-11-02 05:47] VITALS: BP 131/56; RESP 16; TEMP 98.7
[2019-11-02 06:08] VITALS: PULSE 80
[2019-11-02] MEDS ORDERED: fentaNYL (PF) 50 MCG/ML 2 ML AMP IV PRN (06:54)
[2019-11-02] MEDS ORDERED: LACTATED RINGERS 1,000 ML IV SCH (06:54)
[2019-11-02] MEDS ORDERED: ONDANSETRON 4 MG/2 ML VIAL IVP ONE (06:54)
[2019-11-02 07:04] LABS: ALT 255 U/L (4-49); AST 58 U/L (17-59); African American GFR (CKD) >90 (>60 ml/min/1.73 sqM); Albumin 3.4 g/dL (3.5-5.0); Alkaline Phosphatase 91 U/L (38-126); Anion Gap 7 mmol/L; Blood Urea Nitrogen 11 mg/dL (9-20); Calcium 8.3 mg/dL (8.4-10.2); Carbon Dioxide 25 mmol/L (22-30); Chloride 103 mmol/L (98-107); Glucose 106 mg/dL (74-99); Non-African American GFR(CKD) >90 (>60 ml/min/1.73 sqM); Potassium 3.6 mmol/L (3.5-5.1); Sodium 135 mmol/L (137-145); Total Bilirubin 0.8 mg/dL (0.2-1.3); Total Protein 5.8 g/dL (6.3-8.2)
[2019-11-02] MEDS: HEPARIN SODIUM,PORCINE 5,000 UNIT/ML 1 ML VIAL SQ SCH (07:05)
[2019-11-02] MEDS: TAMSULOSIN 0.4 MG CAP.ER.24H PO SCH (07:05)
[2019-11-02] MEDS: PANTOPRAZOLE 40 MG/10 ML VIAL IVP SCH (07:05)
[2019-11-02] MEDS ORDERED: HYDROcodone/APAP 5-325MG 1 EACH TAB PO PRN (08:08)
--- NOTE | 2019-11-02 13:06 | P.DS ---
Providers Date of admission: 11/01/19 08:13 Expected date of discharge: 11/02/19 Attending physician: Mak Katz Consults: 10/30/19 22:35 Consult Physician Routine Consulting Provider: Sharif Okeefe Consult Reason/Comments: Medical management Do you want consulting provider notified?: Yes, Notify in am 10/31/19 11:34 Consult Physician Routine Consulting Provider: Naveed Ventura Consult Reason/Comments: elevated bilirubin, gallstones Do you want consulting provider notified?: Yes Primary care physician: Alex Okeefe [facility] Course: 74-year-old male who presented to the emergency room with a chief complaint of abdominal pain. Patient reports pain is in the epigastric region and right upper quadrant. He states his pain started yesterday. He also reports the pain radiated to his back. Patient reported nausea but denies any episodes of vomiting. Denied fever or chills. Patient was found to have acute cholecystitis. He underwent upper scopic cholecystectomy with Dr. Katz. Patient is doing well postoperatively without any immediate complications. He was deemed stable for discharge home today. Please see EMR for further hospital course he tells. Discharge diagnosis: 1. Abdominal pain 2. Acute cholecystitis 3. Elevated bilirubin, transaminitis Nurse practitioner note has been reviewed by physician. Signing provider agrees with the documented findings, assessment, and plan of care. Patient Condition at Discharge: Stable Plan - Discharge Summary Discharge Rx Participant: Yes New Discharge Prescriptions: New Hydrocodone/Acetaminophen [[place] 5-325] 1 tab PO Q6HR PRN #10 tab PRN Reason: Pain No Action Latanoprost [Xalatan 0.005%] 1 drop BOTH EYES HS Tamsulosin [Flomax] 0.4 mg PO DAILY Discharge Medication List Latanoprost [Xalatan 0.005%] 1 drop BOTH EYES HS 05/23/17 [History] Tamsulosin [Flomax] 0.4 mg PO DAILY 09/01/17 [History] Hydrocodone/Acetaminophen [[place] 5-325] 1 tab PO Q6HR PRN #10 tab 11/02/19 [Rx] Follow up Appointment(s)/Referral(s): Alex Okeefe MD [Primary Care Provider] - 11/09/19 11:30 am Mak Katz MD [STAFF PHYSICIAN] - 11/07/19 2:30 pm Patient Instructions/Handouts: Hydrocodone/Acetaminophen (By mouth), Surgical Site Infections (DC), Laparoscopic Cholecystectomy (DC) Activity/Diet/Wound Care/Special Instructions: No driving while taking [place] No lifting over 10 pounds You may shower. No soaking or tub baths Very light activity until you are reevaluated at your follow up appointment with your surgeon Discharge Disposition: HOME SELF-CARE
== END 2019-11-02 12:03 | disposition home or self-care (01) | DRG 419 ==
LOC: EC 16:11 → 5NMEDONC 20:34 → OBSVTOIN 11-01 08:13
PROVIDERS: ADMIT Surgery; ATTEND Surgery
PROC: 0FT44ZZ Resection of Gallbladder, Percutaneous Endoscopic Approach (ICD-10-PCS; principal; 2019-11-01 08:55)
DX: K80.00 Calculus of gallbladder with acute cholecystitis without obstruction (principal); K76.89 Other specified diseases of liver; N40.0 Benign prostatic hyperplasia without lower urinary tract symptoms; M54.30 Sciatica, unspecified side; H40.9 Unspecified glaucoma; Z79.899 Other long term (current) drug therapy; Z85.46 Personal history of malignant neoplasm of prostate; Z87.891 Personal history of nicotine dependence; Z80.3 Family history of malignant neoplasm of breast
CPT/HCPCS: 36415; 74018; 76705; 80053; 80074; 81001; 82150; 83605; 83690; 85025; 88304; 96361; 96374; 96375; 99285

== ENCOUNTER → 2020-07-08 | Outpatient (CLI) | payer MEDICARE | END | disposition home or self-care (01) | LOC: LABWHC1 10:28 | PROVIDERS: ATTEND Radiology Radiation Oncology | DX: C61 Malignant neoplasm of prostate (principal); Z87.891 Personal history of nicotine dependence; Z79.818 Long term (current) use of other agents affecting estrogen receptors and estrogen levels | CPT/HCPCS: 36415; 84153 ==

== ENCOUNTER → 2020-10-14 | Outpatient (CLI) | payer MEDICARE | END | disposition home or self-care (01) | LOC: LABWHC1 11:06 | PROVIDERS: ATTEND Radiology Radiation Oncology | DX: C61 Malignant neoplasm of prostate (principal); R97.21 Rising PSA following treatment for malignant neoplasm of prostate; Z79.818 Long term (current) use of other agents affecting estrogen receptors and estrogen levels; Z87.891 Personal history of nicotine dependence | CPT/HCPCS: 36415; 84153 ==

== ENCOUNTER → 2021-02-10 | Outpatient (CLI) | payer MEDICARE | END | disposition home or self-care (01) | LOC: LABWHC1 12:55 | PROVIDERS: ATTEND Radiology Radiation Oncology | DX: C61 Malignant neoplasm of prostate (principal); R97.21 Rising PSA following treatment for malignant neoplasm of prostate; Z79.818 Long term (current) use of other agents affecting estrogen receptors and estrogen levels; Z87.891 Personal history of nicotine dependence | CPT/HCPCS: 36415; 84153 ==

== ENCOUNTER 2021-04-23 12:33 | Emergency (ER) | payer MEDICARE ==
[2021-04-23 13:30] VITALS: BP 107/60; PULSE 60; TEMP 98.6
[2021-04-23] MEDS ORDERED: KETOROLAC 15 MG/ML 1 ML VIAL IM STA (15:26)
--- NOTE | 2021-04-23 15:44 | ED ---
General Adult HPI - General Chief complaint: Back Pain/Injury Stated complaint: back pain Time Seen by Provider: 04/23/21 15:13 Source: patient Mode of arrival: ambulatory Limitations: no limitations - History of Present Illness Initial comments: 75-year-old male with a past medical history of prostate disorder, prostate cancer, sciatica, presents to the emergency room for a chief complaint of left- sided back pain. Patient states he has had left-sided low back pain that started while mowing the lawn on a tractor on Wednesday. Patient states he then w ent to work the next day where he lifts 16 pound objects every 4 minutes for 8 hours. States that this worsened his pain. Today after work he had pain with going into a sitting and standing position. Patient states he has had this exact pain before. In the past he has needed muscle relaxers and it is helped within a few days. Patient denies bladder or bowel changes, saddle anesthesia, weakness of the lower extremities, or fevers.Patient has no other complaints at this time including shortness of breath, chest pain, abdominal pain, nausea or vomiting, headache, or visual changes. - Related Data Home Medications Medication Instructions Recorded Confirmed Latanoprost [Xalatan 0.005%] 1 drop BOTH EYES HS 05/23/17 10/30/19 Tamsulosin [Flomax] 0.4 mg PO DAILY 09/01/17 10/30/19 Previous Rx's Medication Instructions Recorded Hydrocodone/Acetaminophen [[place] 1 tab PO Q6HR PRN #10 tab 11/02/19 5-325] Cyclobenzaprine [Flexeril] 10 mg PO TID #10 tab 04/23/21 Lidocaine 5% Patch [Lidoderm 5% 1 patch TOPICAL DAILY PRN 5 Days 04/23/21 Patch] #5 patch Allergies Allergy/AdvReac Type Severity Reaction Status Date / Time No Known Allergies Allergy Verified 04/23/21 13:30 Review of Systems ROS Statement: Those systems with pertinent positive or pertinent negative responses have been documented in the HPI. ROS Other: All systems not noted in ROS Statement are negative. Past Medical History Past Medical History: Cancer, Prostate Disorder Additional Past Medical History / Comment(s): Sciatica, glaucoma enlarged prostate, prostate cancer no treatment so far.. patient states he had biospy but unsure of what it said. Patient said he had injections in his abdomen and back for prostate cancer but no chemo or rad. No surgery. Was seeing in [facility]... but now see's doctor in [place]. History of Any Multi-Drug Resistant Organisms: None Reported Past Surgical History: No Surgical Hx Reported Past Anesthesia/Blood Transfusion Reactions: No Reported Reaction Past Psychological History: No Psychological Hx Reported Smoking Status: Never smoker Past Alcohol Use History: None Reported Past Drug Use History: None Reported - Past Family History Mother Family Medical History: Cancer Additional Family Medical History / Comment(s): Breast cancer General Exam Limitations: no limitations General appearance: alert, in no apparent distress Head exam: Present: atraumatic Eye exam: Present: normal appearance, PERRL, EOMI. Absent: scleral icterus, conjunctival injection ENT exam: Present: normal exam, mucous membranes moist Neck exam: Present: normal inspection, full ROM. Absent: tenderness Respiratory exam: Present: normal lung sounds bilaterally. Absent: respiratory distress, wheezes Cardiovascular Exam: Present: regular rate, normal rhythm, normal heart sounds GI/Abdominal exam: Present: soft. Absent: distended, tenderness Back exam: Present: paraspinal tenderness (L sided lower paraspinal lumbar tenderness. no lumbar spine tenderness.). Absent: CVA tenderness (R), CVA tenderness (L) Neurological exam: Present: alert Course Vital Signs 04/23/21 13:26 Temperature 98.6 F Pulse Rate 60 Respiratory 20 Rate Blood Pressure 107/60 O2 Sat by Pulse 98 Oximetry Medical Decision Making - Medical Decision Making Patient's pain is mechanical in nature. Worsens with flexion of the spine which is limited to about 30. Patient has pain going from standing to sitting position. Mild tenderness to palpation of the paraspinal area. I did offer an x-ray given patient's history of prostate cancer however he says he has had this pain several times before and would like to try muscle relaxers first. If his pain does not improve he will follow up with orthopedics for possible MRI. Patient will return here for any worsening symptoms. Disposition Clinical Impression: Mechanical back pain Disposition: HOME SELF-CARE Condition: Good Instructions (If sedation given, give patient instructions): Acute Low Back Pain (ED) Additional Instructions: Motrin and Tylenol for pain. Take muscle relaxer however do not take this when driving or operating machinery. Follow up with your doctor in one to 2 days. Return to the emergency room for any worsening symptoms. Prescriptions: Cyclobenzaprine [Flexeril] 10 mg PO TID #10 tab Lidocaine 5% Patch [Lidoderm 5% Patch] 1 patch TOPICAL DAILY PRN 5 Days #5 patch PRN Reason: Pain Is patient prescribed a controlled substance at d/c from ED?: No Referrals: Alex Okeefe MD [Primary Care Provider] - 1-2 days Jaemel Almanza DO [Doctor of Osteopathic Medicine] - 1-2 days Time of Disposition: 15:39
[2021-04-23 16:08] VITALS: RESP 18
== END 2021-04-23 16:08 | disposition home or self-care (01) ==
LOC: EC 12:33
DX: M54.5 Low back pain (principal); Z85.46 Personal history of malignant neoplasm of prostate
CPT/HCPCS: 99283; 96372; J1885

== ENCOUNTER → 2021-06-12 | Outpatient (CLI) | payer MEDICARE | END | disposition home or self-care (01) | LOC: LABWHC1 10:48 | PROVIDERS: ATTEND Radiology Radiation Oncology | DX: C61 Malignant neoplasm of prostate (principal); Z92.3 Personal history of irradiation; R97.21 Rising PSA following treatment for malignant neoplasm of prostate; Z79.818 Long term (current) use of other agents affecting estrogen receptors and estrogen levels; Z87.891 Personal history of nicotine dependence | CPT/HCPCS: 36415; 84153 ==

== ENCOUNTER → 2021-09-08 | Outpatient (CLI) | payer MEDICARE | END | disposition home or self-care (01) | LOC: LABWHC1 11:17 | PROVIDERS: ATTEND Radiology Radiation Oncology | DX: C61 Malignant neoplasm of prostate (principal); Z92.3 Personal history of irradiation; R97.21 Rising PSA following treatment for malignant neoplasm of prostate; Z79.818 Long term (current) use of other agents affecting estrogen receptors and estrogen levels; Z87.891 Personal history of nicotine dependence | CPT/HCPCS: 36415; 84153 ==

== ENCOUNTER → 2022-01-29 | Outpatient (CLI) | payer MEDICARE | END | disposition home or self-care (01) | LOC: LABWHC1 13:50 | PROVIDERS: ATTEND Radiology Radiation Oncology | DX: C61 Malignant neoplasm of prostate (principal); Z92.3 Personal history of irradiation; Z79.818 Long term (current) use of other agents affecting estrogen receptors and estrogen levels; Z87.891 Personal history of nicotine dependence; R35.1 Nocturia; R97.21 Rising PSA following treatment for malignant neoplasm of prostate | CPT/HCPCS: 36415; 84153 ==

== ENCOUNTER → 2023-02-12 | Outpatient (CLI) | payer MEDICARE | END | disposition home or self-care (01) | LOC: LABWHC1 08:27 | PROVIDERS: ATTEND Radiology Radiation Oncology | DX: Z08 Encounter for follow-up examination after completed treatment for malignant neoplasm (principal); C61 Malignant neoplasm of prostate; Z85.46 Personal history of malignant neoplasm of prostate; R35.1 Nocturia; Z92.3 Personal history of irradiation; R97.21 Rising PSA following treatment for malignant neoplasm of prostate; Z79.818 Long term (current) use of other agents affecting estrogen receptors and estrogen levels; Z87.891 Personal history of nicotine dependence | CPT/HCPCS: 36415; 84153 ==

== ENCOUNTER → 2023-08-05 | Outpatient (CLI) | payer MEDICARE ==
[2023-08-05 15:35] LABS: Prostate Specific Antigen 0.26 ng/mL (0.000-6.500)
== END | disposition home or self-care (01) ==
LOC: LABWHC1 09:56
PROVIDERS: ATTEND Radiology Radiation Oncology
DX: C61 Malignant neoplasm of prostate (principal); Z08 Encounter for follow-up examination after completed treatment for malignant neoplasm; Z85.46 Personal history of malignant neoplasm of prostate; R35.1 Nocturia; Z92.3 Personal history of irradiation; R97.21 Rising PSA following treatment for malignant neoplasm of prostate; Z79.818 Long term (current) use of other agents affecting estrogen receptors and estrogen levels; Z87.891 Personal history of nicotine dependence
CPT/HCPCS: 36415; 84153; 84403

== ENCOUNTER 2024-07-28 10:19 | Day surgery (SDC) | payer MEDICARE ==
[2024-07-26 11:43] VITALS: BMI 23.6
[2024-07-28] MEDS: IV FLUID CONTINUATION 1,000 ML IV ONE ×2 (10:59→12:04)
[2024-07-28 11:06] VITALS: RESP 16; TEMP 97.3
[2024-07-28] MEDS: LACTATED RINGERS 1,000 ML IV SCH (11:10)
[2024-07-28] MEDS ORDERED: PROPOFOL 10 MG/ML 20 ML VIAL IV ONE (12:06)
--- NOTE | 2024-07-28 12:28 | P.PCN ---
Date of Procedure: 07/28/24 Procedure(s) Performed: BRIEF HISTORY: Patient is a 78-year-old pleasant white male scheduled for an elective colonoscopy as a part of evaluation of intermittent rectal bleeding for the last 6 months duration. He has history of prostate cancer and is status post radiation therapy in 2020. PROCEDURE PERFORMED: Colonoscopy with argon plasma coagulation. PREOPERATIVE DIAGNOSIS: Intermittent rectal bleeding of 6 months duration. IV sedation per Anesthesia. PROCEDURE: After informed consent was obtained, the patient, was brought into the endoscopy unit. IV sedation was administered by Anesthesia under continuous monitoring. Digital rectal examination was normal. Initially the Olympus CF-160 flexible video colonoscope was then inserted in the rectum, gradually advanced into the cecum without any difficulty. Careful examination was performed as the scope was gradually being withdrawn. Ileocecal valve and the appendiceal orifice were visualized and appeared normal. Prep was excellent. Mucosa of the cecum, ascending colon, transverse colon, descending colon, sigmoid colon, appeared normal. In the distal rectum there were multiple telangiectasia with active oozing identified and argon plasma coagulation was performed with good hemostasis. Retroflexion was performed in the rectum and no lesions were seen. The patient tolerated the procedure well. 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 He was advised to be on a high-fiber diet and fiber supplements on a regular basis. Follow-up in the office as needed if he has rectal bleeding.
[2024-07-28 12:49] VITALS: BP 122/76; PULSE 66
== END 2024-07-28 13:19 | disposition home or self-care (01) ==
LOC: ORWHC2ENDO 10:19
PROVIDERS: ATTEND Internal Medicine Gastroenterology
DX: K62.5 Hemorrhage of anus and rectum (principal); I78.1 Nevus, non-neoplastic; Z85.46 Personal history of malignant neoplasm of prostate; Z90.49 Acquired absence of other specified parts of digestive tract
CPT/HCPCS: 45382; J2704